=== PATIENT | female | born 1990 | race Caucasian/White ===

== ENCOUNTER → 2016-08-13 | Outpatient (CLI) | payer OTHER ==
--- NOTE | 2016-08-13 11:53 | US ---
EXAMINATION TYPE: US kidneys/renal and bladder DATE OF EXAM: 08/13/2016 11:37 AM COMPARISON: KUB 07/09/2015 CLINICAL HISTORY: N23 Bilateral Renal Colic. Back pain EXAM MEASUREMENTS: Right Kidney: 9.9 x 3.9 x 5.2 cm Left Kidney: 9.3 x 6.0 x 4.3 cm TECHNOLOGIST IMPRESSION: Right Kidney: multiple echogenic foci seen with largest measuring 0.6cm no significant posterior sha dowing is evident however. Left Kidney: wnl Bladder: wnl Bilateral Jets seen: yes IMPRESSION: 1. Possible right renal stones although no posterior shadowing is evident.
== END | disposition home or self-care (01) ==
LOC: RADUSWWP 11:00
PROVIDERS: ATTEND Urology
DX: N23 Unspecified renal colic (principal)
CPT/HCPCS: 76770

== ENCOUNTER 2022-04-28 14:54 | Emergency (ER) | payer OTHER ==
[2022-04-28 15:11] VITALS: TEMP 98.1
[2022-04-28] MEDS ORDERED: SODIUM CHLORIDE 0.9% 1,000 ML IV STA (17:01)
[2022-04-28] MEDS ORDERED: METOCLOPRAMIDE 5 MG/ML 2 ML VIAL IVP STA (17:01)
[2022-04-28] MEDS ORDERED: diphenhydrAMINE 50 MG/ML 1 ML VIAL IVP STA (17:01)
[2022-04-28] MEDS ORDERED: KETOROLAC 15 MG/ML 1 ML VIAL IVP STA (17:01)
[2022-04-28] MEDS ORDERED: DEXAMETHASONE SOD PHOSPHATE 10 MG/ML 1 ML VIAL IV STA (17:01)
--- NOTE | 2022-04-28 17:13 | ED ---
Headache HPI - General Chief Complaint: Headache Stated Complaint: Headache Time Seen by Provider: 04/28/22 16:45 Source: patient, RN notes reviewed Mode of arrival: ambulatory Limitations: no limitations - History of Present Illness Initial Comments: This is a 31-year-old female who presents to the emergency department for a headache. States that over the last 2 weeks, she has had increasing pressure and pain in her head. She has a "goose egg" on the back of her head, however she denies any known injuries. She has pain radiating from this bump into her eyes and the roof of her mouth, going down the right side of her neck. She does have a history of migraines, but states that this feels very different. 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 She has associated photophobia, sound sensitivity, and nausea. Also reports having sinus surgery a couple of weeks ago for a deviated septum. She has been taking one amoxicillin every couple of days when she has pain around the nose, as she does not have a prescription for this and has only been taking leftover pills. Denies any fevers, chills, sore throat, cough, dyspnea, chest pain, palpitations, abdominal pain, vomiting, or diarrhea. MD Complaint: headache, "migraine" Onset/Timin -: week(s) - Related Data Previous Rx's Medication Instructions Recorded Ondansetron [Zofran] 4 mg PO Q8HR PRN #8 tab 06/21/16 Ondansetron Odt [Zofran Odt] 4 mg PO Q8HR PRN #15 tab 04/28/22 SUMAtriptan succinate 100 mg PO DIRECTED PRN #15 04/28/22 tablet Allergies Allergy/AdvReac Type Severity Reaction Status Date / Time acyclovir Allergy Hallucinati Verified 04/28/22 15:12 ons Review of Systems ROS Statement: Those systems with pertinent positive or pertinent negative responses have been documented in the HPI. ROS Other: All systems not noted in ROS Statement are negative. Past Medical History Past Medical History: Atrial Fibrillation, Blood Disorder Additional Past Medical History / Comment(s): migraines; Anemia; hypokalemia History of Any Multi-Drug Resistant Organisms: MRSA Date of last positivie culture/infection: 2014 MDRO Source:: axilla Past Surgical History: Tonsillectomy Additional Past Surgical History / Comment(s): bladder surgery Past Psychological History: Anxiety, PTSD Smoking Status: Current every day smoker Past Alcohol Use History: None Reported, Rare Past Drug Use History: Marijuana General Exam Limitations: no limitations General appearance: alert, in distress Head exam: Present: atraumatic, normocephalic, normal inspection Eye exam: Present: normal appearance, PERRL, EOMI. Absent: scleral icterus, conjunctival injection, periorbital swelling ENT exam: Present: normal exam, mucous membranes moist Respiratory exam: Present: normal lung sounds bilaterally. Absent: respiratory distress, wheezes, rales, rhonchi, stridor Cardiovascular Exam: Present: regular rate, normal rhythm, normal heart sounds. Absent: systolic murmur, diastolic murmur, rubs, gallop, clicks Neurological exam: Present: alert, oriented X3, CN II-XII intact Psychiatric exam: Present: normal affect, normal mood Skin exam: Present: warm, dry, intact, normal color. Absent: rash Course Vital Signs 04/28/22 15:10 Temperature 98.1 F Pulse Rate 104 H Respiratory 20 Rate Blood Pressure 116/81 O2 Sat by Pulse 97 Oximetry Medical Decision Making - Medical Decision Making This is a 31-year-old female who presents to the emergency department for a headache. Lab work was nonactionable. Given that this was different and much worse than her typical migraine headaches, computed tomography scan of the brain was obtained. Based on my own interpretation, this revealed no signs of intracranial hemorrhage or mass effect. She was given a migraine cocktail consisting of Reglan, Toradol, Benadryl, and Decadron as well as IV fluids. Patient noted resolution of symptoms following medication administration. Prescription for sumatriptan and Zofran provided. Advised she try taking sumatriptan at the onset of a migraine and repeat the dose in 2 hours if symptoms do not improve. She is to avoid taking more than 2 doses in a 24-hour period. Zofran can be taken up to every 8 hours as needed for nausea and vomiti ng. Discussed that if migraines become more frequent, she may want to discuss starting a preventative medication with her primary care provider. Return precautions reviewed in depth, the patient is instructed to return to the emergency department with any new, worsening, or concerning symptoms. Patient verbalized understanding. This case was discussed in detail with the attending ED physician. Presentation, findings, and treatment plan discussed in detail as well. - Lab Data Result diagrams: 04/28/22 17:38 04/28/22 17:38 Lab Results 04/28/22 04/28/22 04/28/22 Range/Units 17:38 17:38 17:38 WBC 3.8 (3.8-10.6) k/uL RBC 3.93 (3.80-5.40) m/uL Hgb 13.7 (11.4-16.0) gm/dL Hct 39.8 (34.0-46.0) % MCV 101.2 H (80.0-100.0) fL MCH 35.0 (25.0-35.0) pg MCHC 34.5 (31.0-37.0) g/dL RDW 11.7 (11.5-15.5) % Plt Count 195 (150-450) k/uL MPV 7.9 Neutrophils % 72 % Lymphocytes % 10 % Monocytes % 14 % Eosinophils % 1 % Basophils % 1 % Neutrophils # 2.7 (1.3-7.7) k/uL Lymphocytes # 0.4 L (1.0-4.8) k/uL Monocytes # 0.5 (0-1.0) k/uL Eosinophils # 0.0 (0-0.7) k/uL Basophils # 0.0 (0-0.2) k/uL ESR 3 (0-20) mm/hr Sodium (137-145) mmol/L Potassium (3.5-5.1) mmol/L Chloride (98-107) mmol/L Carbon Dioxide (22-30) mmol/L Anion Gap mmol/L BUN (7-17) mg/dL Creatinine (0.52-1.04) mg/dL Est GFR (CKD-EPI)AfAm (>60 ml/min/1.73 sqM) Est GFR (CKD-EPI)NonAf (>60 ml/min/1.73 sqM) Glucose (74-99) mg/dL Calcium (8.4-10.2) mg/dL Magnesium (1.6-2.3) mg/dL Total Bilirubin (0.2-1.3) mg/dL AST (14-36) U/L ALT (4-34) U/L Alkaline Phosphatase (38-126) U/L C-Reactive Protein (<1.0) mg/dL Total Protein (6.3-8.2) g/dL Albumin (3.5-5.0) g/dL TSH (0.465-4.680) mIU/L Free T4 (0.78-2.19) ng/dL Urine Color Yellow Urine Appearance Turbid H (Clear) Urine pH 6.0 (5.0-8.0) Ur Specific [place] 1.024 (1.001-1.035) Urine Protein 2+ H (Negative) Urine Glucose (UA) Negative (Negative) Urine Ketones 2+ H (Negative) Urine Blood Small H (Negative) Urine Nitrite Negative (Negative) Urine Bilirubin Negative (Negative) Urine Urobilinogen 2.0 (<2.0) mg/dL Ur Leukocyte Esterase Negative (Negative) Urine RBC 6 H (0-5) /hpf Urine WBC 2 (0-5) /hpf Ur Squamous Epith Cells 17 H (0-4) /hpf Amorphous Sediment Rare H (None) /hpf Urine Bacteria Rare H (None) /hpf Urine Mucus Many H (None) /hpf Urine HCG, Qual Not Detected (Not Detectd) 04/28/22 Range/Units 17:38 WBC (3.8-10.6) k/uL RBC (3.80-5.40) m/uL Hgb (11.4-16.0) gm/dL Hct (34.0-46.0) % MCV (80.0-100.0) fL MCH (25.0-35.0) pg MCHC (31.0-37.0) g/dL RDW (11.5-15.5) % Plt Count (150-450) k/uL MPV Neutrophils % % Lymphocytes % % Monocytes % % Eosinophils % % Basophils % % Neutrophils # (1.3-7.7) k/uL Lymphocytes # (1.0-4.8) k/uL Monocytes # (0-1.0) k/uL Eosinophils # (0-0.7) k/uL Basophils # (0-0.2) k/uL ESR (0-20) mm/hr Sodium 139 (137-145) mmol/L Potassium 3.8 (3.5-5.1) mmol/L Chloride 103 (98-107) mmol/L Carbon Dioxide 23 (22-30) mmol/L Anion Gap 13 mmol/L BUN 11 (7-17) mg/dL Creatinine 0.60 (0.52-1.04) mg/dL Est GFR (CKD-EPI)AfAm >90 (>60 ml/min/1.73 sqM) Est GFR (CKD-EPI)NonAf >90 (>60 ml/min/1.73 sqM) Glucose 96 (74-99) mg/dL Calcium 9.2 (8.4-10.2) mg/dL Magnesium 1.9 (1.6-2.3) mg/dL Total Bilirubin 0.4 (0.2-1.3) mg/dL AST 32 (14-36) U/L ALT 22 (4-34) U/L Alkaline Phosphatase 53 (38-126) U/L C-Reactive Protein <0.5 (<1.0) mg/dL Total Protein 7.5 (6.3-8.2) g/dL Albumin 5.0 (3.5-5.0) g/dL TSH 0.464 L (0.465-4.680) mIU/L Free T4 0.99 (0.78-2.19) ng/dL Urine Color Urine Appearance (Clear) Urine pH (5.0-8.0) Ur Specific [place] (1.001-1.035) Urine Protein (Negative) Urine Glucose (UA) (Negative) Urine Ketones (Negative) Urine Blood (Negative) Urine Nitrite (Negative) Urine Bilirubin (Negative) Urine Urobilinogen (<2.0) mg/dL Ur Leukocyte Esterase (Negative) Urine RBC (0-5) /hpf Urine WBC (0-5) /hpf Ur Squamous Epith Cells (0-4) /hpf Amorphous Sediment (None) /hpf Urine Bacteria (None) /hpf Urine Mucus (None) /hpf Urine HCG, Qual (Not Detectd) - Radiology Data Radiology results: report reviewed, image reviewed Disposition Clinical Impression: Migraine headache Disposition: HOME SELF-CARE Instructions (If sedation given, give patient instructions): Migraine Headache (ED) Additional Instructions: Return to the emergency department with any new, worsening, or concerning symptoms. Take the sumatriptan and at the onset of a migraine headache. You can repeat the dose in 2 hours if symptoms do not improve. Do not take more than 2 pills in a 24-hour period. Take the Zofran up to every 8 hours as needed for any nausea and vomiting. Follow up with your primary care provider in 1-2 days. Prescriptions: SUMAtriptan succinate 100 mg PO DIRECTED PRN #15 tablet PRN Reason: Migraine Headache Ondansetron Odt [Zofran Odt] 4 mg PO Q8HR PRN #15 tab PRN Reason: Nausea And Vomiting Is patient prescribed a controlled substance at d/c from ED?: No Referrals: Nonstaff,Physician [Primary Care Provider] - 1-2 days
[2022-04-28 17:54] LABS: Basophils % (A) 1 %; Eosinophils % (A) 1 %; HCT 39.8 % (34.0-46.0); HGB 13.7 gm/dL (11.4-16.0); Lymphocytes # (A) 0.4 k/uL (1.0-4.8); Lymphocytes % (A) 10 %; MCHC 34.5 g/dL (31.0-37.0); MCV 101.2 fL (80.0-100.0); Mean Platelet Volume 7.9; Monocytes # (A) 0.5 k/uL (0-1.0); Monocytes % (A) 14 %; Neutrophils # (A) 2.7 k/uL (1.3-7.7); Neutrophils % (A) 72 %; Platelet Count 195 k/uL (150-450); RBC 3.93 m/uL (3.80-5.40); RDW 11.7 % (11.5-15.5); WBC 3.8 k/uL (3.8-10.6)
[2022-04-28 18:06] LABS: Amorphous Sediment,Urine Rare /hpf; Appearance,Urine Turbid (Clear); Bacteria,Urine Rare /hpf; Bilirubin,Urine Negative (Negative); Blood,Urine Small (Negative); Color,Urine Yellow; Glucose,Urine (UA) Negative (Negative); Ketones,Urine 2+ (Negative); Leukocyte Esterase,Urine Negative (Negative); Mucus,Urine Many /hpf; Nitrite,Urine Negative (Negative); Protein,Urine 2+ (Negative); RBC,Urine 6 /hpf (0-5); Specific Gravity,Urine 1.024 (1.001-1.035); Squamous Epithelial Cell,Urine 17 /hpf (0-4); WBC,Urine 2 /hpf (0-5)
[2022-04-28 18:12] LABS: ALT 22 U/L (4-34); AST 32 U/L (14-36); African American GFR (CKD) >90 (>60 ml/min/1.73 sqM); Alkaline Phosphatase 53 U/L (38-126); Anion Gap 13 mmol/L; Blood Urea Nitrogen 11 mg/dL (7-17); Calcium 9.2 mg/dL (8.4-10.2); Carbon Dioxide 23 mmol/L (22-30); Chloride 103 mmol/L (98-107); Glucose 96 mg/dL (74-99); Magnesium 1.9 mg/dL (1.6-2.3); Non-African American GFR(CKD) >90 (>60 ml/min/1.73 sqM); Potassium 3.8 mmol/L (3.5-5.1); Sodium 139 mmol/L (137-145); Total Bilirubin 0.4 mg/dL (0.2-1.3); Total Protein 7.5 g/dL (6.3-8.2)
[2022-04-28 18:16] LABS: C Reactive Protein <0.5 mg/dL (<1.0)
[2022-04-28 18:37] LABS: Erythrocyte Sedimentation Rate 3 mm/hr (0-20)
--- NOTE | 2022-04-28 18:52 | CT ---
EXAMINATION TYPE: CT brain wo con CT DLP: 1088.4 mGycm, Automated exposure control for dose reduction was used. DATE OF EXAM: 04/28/2022 6:14 PM COMPARISON: None. CLINICAL INDICATION:Female, 31 years old with history of Headache, hx of migraines, different sx, vitor oswald TECHNIQUE: Brain: Axial CT images of the brain were obtained with coronal and sagittal reformats created and rev iewed. Contrast used: None. Oral contrast used: None. FINDINGS: Brain: Extra-axial spaces: No abnormal extra-axial fluid collections. Ventricular system: Within normal limits Cerebral parenchyma: No acute intraparenchymal hemorrhage or mass effect. The duggan-white junction is well differentiated. Cerebellum: Unremarkable. Mass effect: No evidence of midline shift. Intracranial vasculature: unremarkable Soft tissues: Normal. Calvarium/osseous structures: No depressed skull fracture. Paranasal sinuses and mastoid air cells: Mild scattered paranasal sinus disease. Visualized orbits: Orbital contents are intact. IMPRESSION: No acute intracranial process.
[2022-04-28 19:17] LABS: T4, Free (Free Thyroxine) 0.99 ng/dL (0.78-2.19)
[2022-04-28 19:33] VITALS: BP 100/52; PULSE 65; RESP 16
== END 2022-04-28 19:52 | disposition home or self-care (01) ==
LOC: EC 14:54
DX: G43.909 Migraine, unspecified, not intractable, without status migrainosus (principal); I48.91 Unspecified atrial fibrillation; F41.9 Anxiety disorder, unspecified; F17.200 Nicotine dependence, unspecified, uncomplicated; F12.90 Cannabis use, unspecified, uncomplicated; Z88.8 Allergy status to other drugs, medicaments and biological substances; Z79.899 Other long term (current) drug therapy
CPT/HCPCS: 36415; 84439; 80053; 85652; 84443; 83735; 85025; 86140; 81001; 81025; 70450; 99284; 96374; 96375 ×3; 96361 ×2; J1200; J1100; J2765; J1885

== ENCOUNTER 2022-06-08 09:52 | Day surgery (SDC) | payer OTHER ==
[2022-06-04 15:03] VITALS: BMI 18.3
[~2022-06-08 09:52] MED LIST: SODIUM CHLORIDE 0.9% 1,000 ML IV SCH
[2022-06-08 10:35] VITALS: RESP 16; TEMP 98.5
[2022-06-08] MEDS ORDERED: SODIUM CHLORIDE 0.9% 500 ML 500 ML IV ONE (10:36)
[2022-06-08] MEDS ORDERED: ATROPINE SULFATE 0.1 MG/ML 10ML SYRINGE IV ONE (11:50)
[2022-06-08 13:40] VITALS: BP 129/78; PULSE 93
--- NOTE | 2022-06-08 14:08 | P.EPPROC ---
- EP Procedure Note Electrophysiology Procedure Note: Diagnosis Recurrent syncope Twelve-lead EKG shows sinus mechanism normal MT narrow QRS and incomplete right bundle branch block Normal ST segments normal QT interval no delta waves no epsilon waves Tilt table test per protocol Baseline blood pressure 124/63 mmHg Baseline heart rate 70 beats a minute Patient was tilted upright at an angle of 70 per protocol No significant change in heart rate or blood pressure with ClearSite noninvasive blood pressure monitoring Atropine infusion The patient is laid supine at the end of the procedure IV atropine was administered, 1 mg Baseline heart rate 70 beats a minute Peak heart rate 101 beats a minute 10 minutes after injection of atropine
== END 2022-06-08 12:33 | disposition home or self-care (01) ==
LOC: CATHEP 09:52
PROVIDERS: ATTEND Internal Medicine Clinical Cardiac Electrophysiology
DX: R55 Syncope and collapse (principal); I47.1 Supraventricular tachycardia; I49.3 Ventricular premature depolarization
CPT/HCPCS: 93660; 81025; J0461

== ENCOUNTER 2022-06-09 13:28 | Emergency (ER) | payer OTHER ==
[2022-06-09 13:38] VITALS: BP 112/67; PULSE 85; RESP 26; TEMP 98.7
--- NOTE | 2022-06-09 14:29 | XR ---
EXAMINATION TYPE: XR chest 2V DATE OF EXAM: 06/09/2022 COMPARISON: 09/08/2015 HISTORY: Chest pain TECHNIQUE: Frontal and lateral views of the chest are obtained. FINDINGS: There is no focal air space opacity. No evidence for pneumothorax. No pleural effusion. The cardiac silhouette size is within normal limits. The osseous structures are grossly intact. IMPRESSION: 1. No acute cardiopulmonary process.
[2022-06-09 15:11] LABS: Basophils % (A) 0 %; Eosinophils # (A) 0.1 k/uL (0-0.7); Eosinophils % (A) 1 %; HCT 36.1 % (34.0-46.0); HGB 12.6 gm/dL (11.4-16.0); Lymphocytes # (A) 0.4 k/uL (1.0-4.8); Lymphocytes % (A) 7 %; MCH 34.6 pg (25.0-35.0); MCV 98.9 fL (80.0-100.0); Monocytes # (A) 0.6 k/uL (0-1.0); Monocytes % (A) 12 %; Neutrophils % (A) 78 %; Platelet Count 223 k/uL (150-450); RBC 3.65 m/uL (3.80-5.40); RDW 11.8 % (11.5-15.5); WBC 5.1 k/uL (3.8-10.6)
[2022-06-09 15:32] LABS: ALT 18 U/L (4-34); AST 23 U/L (14-36); African American GFR (CKD) >90 (>60 ml/min/1.73 sqM); Albumin 4.5 g/dL (3.5-5.0); Alkaline Phosphatase 52 U/L (38-126); Anion Gap 9 mmol/L; Blood Urea Nitrogen 12 mg/dL (7-17); Calcium 9.1 mg/dL (8.4-10.2); Carbon Dioxide 20 mmol/L (22-30); Chloride 108 mmol/L (98-107); Glucose 95 mg/dL (74-99); Non-African American GFR(CKD) >90 (>60 ml/min/1.73 sqM); Potassium 3.5 mmol/L (3.5-5.1); Sodium 137 mmol/L (137-145); Total Bilirubin 0.7 mg/dL (0.2-1.3)
== END 2022-06-09 16:07 | disposition left against medical advice (07) ==
LOC: EC 13:28
DX: Z53.21 Procedure and treatment not carried out due to patient leaving prior to being seen by health care provider (principal)
CPT/HCPCS: 36415; 71046; 80053; 84484; 85025; 96372; 99284; 99499

== ENCOUNTER → 2023-06-17 | Outpatient (CLI) | payer OTHER ==
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
[2023-06-17 09:14] VITALS: RESP 16
== END ==
LOC: WWCWWP 07:18
PROVIDERS: ATTEND Surgery
DX: Z12.31 Encounter for screening mammogram for malignant neoplasm of breast (principal); R92.1 Mammographic calcification found on diagnostic imaging of breast; N64.52 Nipple discharge; N63.20 Unspecified lump in the left breast, unspecified quadrant; I48.91 Unspecified atrial fibrillation; R55 Syncope and collapse; I42.9 Cardiomyopathy, unspecified; F17.200 Nicotine dependence, unspecified, uncomplicated; Z80.3 Family history of malignant neoplasm of breast; Z88.0 Allergy status to penicillin; Z86.69 Personal history of other diseases of the nervous system and sense organs; Z91.048 Other nonmedicinal substance allergy status

== ENCOUNTER → 2023-06-17 | Day surgery (SDC) | payer OTHER ==
[2023-06-17 07:51] VITALS: BP 107/72; PULSE 78; RESP 16; TEMP 97.9
== END ==
LOC: RADMAMWWP 07:19
PROVIDERS: ATTEND Surgery
DX: R92.8 Other abnormal and inconclusive findings on diagnostic imaging of breast (principal); Z53.9 Procedure and treatment not carried out, unspecified reason

== ENCOUNTER 2023-07-14 15:06 | Emergency (ER) | payer OTHER ==
[2023-07-14 15:24] VITALS: BP 127/88; PULSE 80; RESP 16; TEMP 98
[2023-07-14] MEDS ORDERED: diphenhydrAMINE 50 MG/ML 1 ML VIAL IVP STA (18:36)
[2023-07-14] MEDS ORDERED: METOCLOPRAMIDE 5 MG/ML 2 ML VIAL IVP STA (18:37)
[2023-07-14 19:04] LABS: Appearance,Urine Cloudy (Clear); Bilirubin,Urine Negative (Negative); Blood,Urine Negative (Negative); Color,Urine Yellow; Glucose,Urine (UA) Negative (Negative); Ketones,Urine Negative (Negative); Leukocyte Esterase,Urine Negative (Negative); Mucus,Urine Many /hpf; Nitrite,Urine Negative (Negative); PH, Urine 6.5 (5.0-8.0); Protein,Urine Trace (Negative); RBC,Urine 2 /hpf (0-5); Squamous Epithelial Cell,Urine <1 /hpf (0-4); WBC,Urine <1 /hpf (0-5)
[2023-07-14 19:13] LABS: Amphetamine Screen,Urine Not Detected (NotDetected); Barbiturate Screen,Urine Not Detected (NotDetected); Benzodiazepines Screen,Urine Not Detected (NotDetected); Cocaine Screen,Urine Not Detected (NotDetected); Methadone Screen, Urine Not Detected (NotDetected); Opiate Screen,Urine Not Detected (NotDetected); Oxycodone Screen, Urine Not Detected (NotDetected); Phencyclidine Screen,Urine Not Detected (NotDetected); Tricyclic Antidepressant,Urine Not Detected (NotDetected); Urn Cannabinoid Scrn Detected (NotDetected)
[2023-07-14 19:16] LABS: Basophils % (A) 0 %; Eosinophils # (A) 0.4 k/uL (0-0.7); Eosinophils % (A) 3 %; HCT 45.7 % (34.0-46.0); HGB 14.9 gm/dL (11.4-16.0); Lymphocytes # (A) 4.1 k/uL (1.0-4.8); Lymphocytes % (A) 32 %; MCH 33.7 pg (25.0-35.0); MCHC 32.6 g/dL (31.0-37.0); MCV 103.4 fL (80.0-100.0); Macrocytosis Slight; Mean Platelet Volume 7.8; Monocytes # (A) 0.7 k/uL (0-1.0); Monocytes % (A) 5 %; Neutrophils # (A) 7.3 k/uL (1.3-7.7); Neutrophils % (A) 57 %; Platelet Count 399 k/uL (150-450); RBC 4.42 m/uL (3.80-5.40); RDW 12.3 % (11.5-15.5); WBC 12.9 k/uL (3.8-10.6)
--- NOTE | 2023-07-14 19:29 | CT ---
EXAMINATION TYPE: CT brain wo con CT DLP: 1093.4 mGycm, Automated exposure control for dose reduction was used. DATE OF EXAM: 07/14/2023 7:18 PM COMPARISON: 04/28/2022. CLINICAL INDICATION:Female, 32 years old with history of pain, c/o headache, pt states she has a sinu s infection. TECHNIQUE: Brain: Axial CT images of the brain were obtained with coronal and sagittal reformats created and rev iewed. Contrast used: None. Oral contrast used: None. FINDINGS: Brain: Extra-axial spaces: No abnormal extra-axial fluid collections. Ventricular system: Within normal limits Cerebral parenchyma: No acute intraparenchymal hemorrhage or mass effect. The duggan-white junction is well differentiated. Cerebellum: Unremarkable. Mass effect: No evidence of midline shift. Intracranial vasculature: unremarkable Soft tissues: Normal. Calvarium/osseous structures: No depressed skull fracture. Paranasal sinuses and mastoid air cells: Mild scattered paranasal sinus disease. Visualized orbits: Orbital contents are intact. IMPRESSION: 1. No acute intracranial process. 2. Mild paranasal sinus mucosal thickening.
--- NOTE | 2023-07-15 00:37 | ED ---
General Adult HPI - General Chief complaint: ENT Stated complaint: infection, Time Seen by Provider: 07/14/23 17:55 Source: patient, RN notes reviewed Mode of arrival: ambulatory Limitations: no limitations - History of Present Illness Initial comments: 32-year-old female presents emergency department for evaluation of headache with history of sinusitis. Patient states that she follows with Dr. Dupree in [place] for ENT treatment. She states that she has been on 3 courses of antibiotics the most recent being clindamycin she reports that she is still currently taking. She states that she had headache today. Patient reports of fevers at home and she is carrying a thermometer with her currently. Last documented temperatures on her thermometer were 98.3, 98.1. She reports that the pain is mostly on the right side of her head it is a shooting pain. She reports pain in the right ear. She also admits to facial pressure. Denies romain sea, vomiting. - Related Data Home Medications Medication Instructions Recorded Confirmed Ibuprofen 600 mg PO BID 06/17/23 06/17/23 Allergies Allergy/AdvReac Type Severity Reaction Status Date / Time adhesive Allergy Rash/Hives Verified 07/14/23 15:14 amoxicillin [From Amoxil] Allergy Rash/Hives Verified 07/14/23 15:14 Review of Systems ROS Statement: Those systems with pertinent positive or pertinent negative responses have been documented in the HPI. ROS Other: All systems not noted in ROS Statement are negative. Past Medical History Past Medical History: Atrial Fibrillation, Blood Disorder, Syncope Additional Past Medical History / Comment(s): migraines; ANEMIA,-SEE [facility] History of Any Multi-Drug Resistant Organisms: MRSA Date of last positivie culture/infection: 2014 MDRO Source:: axilla Past Surgical History: Bladder Surgery, Tonsillectomy Additional Past Surgical History / Comment(s): bladder surgery. SINUS SX Past Anesthesia/Blood Transfusion Reactions: Motion Sickness Past Psychological History: PTSD Past Drug Use History: Marijuana - Past Family History Mother Family Medical History: Cancer General Exam Limitations: no limitations General appearance: alert, in no apparent distress Course Vital Signs 07/14/23 07/14/23 15:11 16:23 Temperature 98.0 F Pulse Rate 80 80 Respiratory 16 16 Rate Blood Pressure 127/88 O2 Sat by Pulse 97 98 Oximetry Medical Decision Making - Medical Decision Making Was pt. sent in by a medical professional or institution (GLORIA Gonzales, [employer], urgent care, hospital, or custodial...) When possible be specific @ -No Did you speak to anyone other than the patient for history (EMS, parent, family, police, friend...)? What history was obtained from this source @ -No Did you review nursing and triage notes (agree or disagree)? Why? @ -I reviewed and agree with nursing and triage notes Were old charts reviewed (outside hosp., previous admission, EMS record, old EKG, old radiological studies, urgent care reports/EKG's, custodial records)? Report findings @ -No old charts were reviewed Differential Diagnosis (chest pain, altered mental status, abdominal pain women, abdominal pain men, vaginal bleeding, weakness, fever, dyspnea, syncope, headache, dizziness, GI bleed, back pain, seizure, CVA, palpatations, mental health, musculoskeletal)? @ -Sinusitis, otitis media, encephalitis, this list is not all-inclusive EKG interpreted by me (3pts min.). @ -none X-rays interpreted by me (1pt min.). @ -None done CT interpreted by me (1pt min.). @ -CT brain shows no acute intracranial process, mild mucosal thickening U/S interpreted by me (1pt. min.). @ -None done What testing was considered but not performed or refused? (CT, X-rays, U/S, labs)? Why? @ -None What meds were considered but not given or refused? Why? @ -None Did you discuss the management of the patient with other professionals (professionals i.e. GLORIA Gonzales, [employer]IVER, lab, RT, psych nurse, social media project manager, peoplesoft functional analyst, teacher, department of natural resources officer, welfare case worker)? Give summary @ -No Was smoking cessation discussed for >3mins.? @ -No Was critical care preformed (if so, how long)? @ -No Were there social determinants of health that impacted care today? How? (Homelessness, low income, unemployed, alcoholism, drug addiction, transportation, low edu. Level, literacy, decrease access to med. care, mcc, rehab)? @ -No Was there de-escalation of care discussed even if they declined (Discuss DNR or withdrawal of care, Hospice)? DNR status @ -No What co-morbidities impacted this encounter? (DM, HTN, Smoking, COPD, CAD, Cancer, CVA, ARF, Chemo, Hep., AIDS, mental health diagnosis, sleep apnea, morbid obesity)? @ -None Was patient admitted / discharged? Hospital course, mention meds given and route, prescriptions, significant lab abnormalities, going to OR and other pertinent info. @ -Patient presented to the emergency department for evaluation of headache, sinusitis. Patient was tested for Covid, influenza, RSV in the waiting room which was negative. Patient was brought back to 26 and was evaluated by myself. Because of patient's symptomatology a computed tomography scan of the brain was obtained which shows no acute intracranial process. Laboratory studies obtained. CBC shows a CBC 12.9, hemoglobin 14.9; lactic acid 1.0; UA shows cloudy urine, trace protein; urine drug screen positive for marijuana. While nurse was in another room, the patient eloped from the emergency department with IV intact. Therefore patient left AGAINST MEDICAL ADVICE. The patient was contacted but did not answer. [facility] Department was made aware of the situation. Undiagnosed new problem with uncertain prognosis? @ -No Drug Therapy requiring intensive monitoring for toxicity (Heparin, Nitro, Insulin, Cardizem)? @ -No Were any procedures done? @ -No Diagnosis/symptom? @ -Left AGAINST MEDICAL ADVICE, headache Acute, or Chronic, or Acute on Chronic? @ -acute Uncomplicated (without systemic symptoms) or Complicated (systemic symptoms)? @ -uncomplicated Side effects of treatment? @ -No Exacerbation, Progression, or Severe Exacerbation? @ -No Poses a threat to life or bodily function? How? (Chest pain, USA, NH, pneumonia, PE, COPD, DKA, ARF, appy, cholecystitis, CVA, Diverticulitis, Homicidal, Suicidal, threat to staff... and all critical care pts) @ -No - Lab Data Result diagrams: 07/14/23 18:41 Lab Results 07/14/23 07/14/23 07/14/23 Range/Units 15:17 18:41 18:41 WBC 12.9 H (3.8-10.6) k/uL RBC 4.42 (3.80-5.40) m/uL Hgb 14.9 (11.4-16.0) gm/dL Hct 45.7 (34.0-46.0) % MCV 103.4 H (80.0-100.0) fL MCH 33.7 (25.0-35.0) pg MCHC 32.6 (31.0-37.0) g/dL RDW 12.3 (11.5-15.5) % Plt Count 399 (150-450) k/uL MPV 7.8 Neutrophils % 57 % Lymphocytes % 32 % Monocytes % 5 % Eosinophils % 3 % Basophils % 0 % Neutrophils # 7.3 (1.3-7.7) k/uL Lymphocytes # 4.1 (1.0-4.8) k/uL Monocytes # 0.7 (0-1.0) k/uL Eosinophils # 0.4 (0-0.7) k/uL Basophils # 0.0 (0-0.2) k/uL Macrocytosis Slight Plasma Lactic Acid Jorge Luis 1.0 (0.7-2.0) mmol/L Urine Color Urine Appearance (Clear) Urine pH (5.0-8.0) Ur Specific [place] (1.001-1.035) Urine Protein (Negative) Urine Glucose (UA) (Negative) Urine Ketones (Negative) Urine Blood (Negative) Urine Nitrite (Negative) Urine Bilirubin (Negative) Urine Urobilinogen (<2.0) mg/dL Ur Leukocyte Esterase (Negative) Urine RBC (0-5) /hpf Urine WBC (0-5) /hpf Ur Squamous Epith Cells (0-4) /hpf Urine Mucus (None) /hpf Urine HCG, Qual (Not Detectd) Urine Opiates Screen (NotDetected) Ur Oxycodone Screen (NotDetected) Urine Methadone Screen (NotDetected) Ur Barbiturates Screen (NotDetected) U Tricyclic Antidepress (NotDetected) Ur Phencyclidine Scrn (NotDetected) Ur Amphetamines Screen (NotDetected) U Methamphetamines Scrn (NotDetected) U Benzodiazepines Scrn (NotDetected) Urine Cocaine Screen (NotDetected) U Marijuana (THC) Screen (NotDetected) Influenza Type A (PCR) Not Detected (Not Detectd) Influenza Type B (PCR) Not Detected (Not Detectd) RSV (PCR) Not Detected (Not Detectd) SARS-CoV-2 (PCR) Not Detected (Not Detectd) 07/14/23 07/14/23 Range/Units 18:41 18:41 WBC (3.8-10.6) k/uL RBC (3.80-5.40) m/uL Hgb (11.4-16.0) gm/dL Hct (34.0-46.0) % MCV (80.0-100.0) fL MCH (25.0-35.0) pg MCHC (31.0-37.0) g/dL RDW (11.5-15.5) % Plt Count (150-450) k/uL MPV Neutrophils % % Lymphocytes % % Monocytes % % Eosinophils % % Basophils % % Neutrophils # (1.3-7.7) k/uL Lymphocytes # (1.0-4.8) k/uL Monocytes # (0-1.0) k/uL Eosinophils # (0-0.7) k/uL Basophils # (0-0.2) k/uL Macrocytosis Plasma Lactic Acid Jorge Luis (0.7-2.0) mmol/L Urine Color Yellow Urine Appearance Cloudy H (Clear) Urine pH 6.5 (5.0-8.0) Ur Specific [place] 1.020 (1.001-1.035) Urine Protein Trace H (Negative) Urine Glucose (UA) Negative (Negative) Urine Ketones Negative (Negative) Urine Blood Negative (Negative) Urine Nitrite Negative (Negative) Urine Bilirubin Negative (Negative) Urine Urobilinogen 2.0 (<2.0) mg/dL Ur Leukocyte Esterase Negative (Negative) Urine RBC 2 (0-5) /hpf Urine WBC <1 (0-5) /hpf Ur Squamous Epith Cells <1 (0-4) /hpf Urine Mucus Many H (None) /hpf Urine HCG, Qual Not Detected (Not Detectd) Urine Opiates Screen Not Detected (NotDetected) Ur Oxycodone Screen Not Detected (NotDetected) Urine Methadone Screen Not Detected (NotDetected) Ur Barbiturates Screen Not Detected (NotDetected) U Tricyclic Antidepress Not Detected (NotDetected) Ur Phencyclidine Scrn Not Detected (NotDetected) Ur Amphetamines Screen Not Detected (NotDetected) U Methamphetamines Scrn Not Detected (NotDetected) U Benzodiazepines Scrn Not Detected (NotDetected) Urine Cocaine Screen Not Detected (NotDetected) U Marijuana (THC) Screen Detected H (NotDetected) Influenza Type A (PCR) (Not Detectd) Influenza Type B (PCR) (Not Detectd) RSV (PCR) (Not Detectd) SARS-CoV-2 (PCR) (Not Detectd) Disposition Clinical Impression: Left against medical advice Disposition: LEFT AGAINST MEDICAL ADVICE Is patient prescribed a controlled substance at d/c from ED?: No Referrals: Shaq Majano [Primary Care Provider] - 1-2 days
== END 2023-07-14 20:19 | disposition left against medical advice (07) ==
LOC: EC 15:06
DX: R51.9 Headache, unspecified (principal); I48.91 Unspecified atrial fibrillation; F12.90 Cannabis use, unspecified, uncomplicated; Z20.822 Contact with and (suspected) exposure to COVID-19; Z53.29 Procedure and treatment not carried out because of patient's decision for other reasons; Z88.0 Allergy status to penicillin; Z91.048 Other nonmedicinal substance allergy status
CPT/HCPCS: 36415; 83605; 85025; 81001; 81025; 80306; 87636; 70450; 99284; 96374; 96375; J1200; J2765

== ENCOUNTER → 2023-08-02 | Outpatient (CLI) | payer OTHER ==
--- NOTE | 2023-08-02 10:18 | USB ---
Reason for Exam: Clinical finding. Patient History: Menarche at age 7. First Full-Term at age 19. Prior Study Comparison: 05/08/2014 Bilateral Diagnostic Mammogram, [facility]. 07/17/2015 Bilateral Diagnostic Ultrasound, [facility]. Findings: The whole breast of the right breast, the axilla of the right breast and the retroareolar of the right breast were scanned. Technique utilized:US breast complete RT Image; Ultrasound imaging of: All 4 quadrants, the retroareolar region and axilla. * Anechoic cyst at 9:00 4 cm from the nipple measuring 5 x 3 x 7 mm . * Hypoechoic lesion at 9:00 4 cm from the nipple measuring 4 x 3 x 4 mm. This is felt to represent a complicated cyst. Six-month follow-up for this lesion to ensure stability as there are no ultrasound priors of this lesion. Overall Assessment: Probably benign, BI-RAD 3 Management: Diagnostic Breast Ultrasound of the right breast in 6 months. A clinical breast exam by your physician is recommended on an annual basis and results should be correlated with mammographic findings. This exam should not preclude additional follow-up of suspicious palpable abnormalities. Results were given to the patient verbally at the time of exam. Electronically signed and approved by: Del Amaro DO
== END | disposition home or self-care (01) ==
LOC: RADUSWWP 09:35
PROVIDERS: ATTEND Surgery
DX: N64.4 Mastodynia (principal)

== ENCOUNTER → 2023-08-05 | Outpatient (CLI) | payer OTHER ==
--- NOTE | 2023-08-05 13:05 | P.PN ---
Subjective Progress Note Date: 08/05/23 Principal diagnosis: abnormal right breast mammogram, abnormal right breast ultrasound Aspen is a 32 year old female who had a bilateral mammogram performed on . This revealed group of punctate calcifications in the right breast. This is in the upper outer posterior breast and stereotactic core biopsy was recommended. No lesions of concern were identified in the left breast. A left breast ultrasound was performed on the same date and this revealed a 0.7 x 0.7 cm oval mass. Findings were compatible with a complex cyst in short-term follow-up was recommended. An additional cyst at the 1 o'clock position was identified. She has had breast lumps since 2011. She also complains of stabbing pain in both breast since 2011. This led to her work-up. She did not have a right breast ultrasound. She has not had any surgery on her breast. She is complaining of nipple discharge bilateral milky during her period. Her last period was approximately 1 week ago. She is not complaining of any recent trauma or infection in her breast. She had a right breast ultrasound done on 08-02-23 which was BIRAD 3; repeat in 6 months her stero biopsy was cancelled on 06-17-23 secondary to the fact the patient was taking motrin ULtrasound results discussed with the patient. Plan: schedule the stero biopsy of the right breast CC: Dr. Bach
[2023-08-05 13:35] VITALS: BP 128/86; PULSE 99; RESP 15; TEMP 99
== END ==
LOC: WWCWWP 12:10
PROVIDERS: ATTEND Surgery
DX: R92.1 Mammographic calcification found on diagnostic imaging of breast (principal); N63.20 Unspecified lump in the left breast, unspecified quadrant; N64.52 Nipple discharge; N60.01 Solitary cyst of right breast; F12.90 Cannabis use, unspecified, uncomplicated; F17.200 Nicotine dependence, unspecified, uncomplicated; Z91.048 Other nonmedicinal substance allergy status; Z88.0 Allergy status to penicillin

== ENCOUNTER → 2023-08-26 | Day surgery (SDC) | payer OTHER ==
--- NOTE | 2023-08-26 08:28 | P.PN ---
Progress Note - Text Progress Note Date: 08/26/23 Plan repeat bilateral mammogram radiographic workup today. After review of the radiographs with Dr. Wadsworth's recommendation was for repeat bilateral mammogram and ultrasound in 6 months. I have discussed this with the patient. The patient would like us to review this with Dr. Pettit as well we will do this the next time Dr. Pettit is in the department and final recommendation will be given to the patient. For today's appointment however we are going to cancel the stereotactic core biopsy. The patient does have fibrocystic breast like pain. We have discussed lifestyle modifications. These would include stopping nicotine, decrease caffeine, she understands and will consider this.
--- NOTE | 2023-08-26 10:41 | MM ---
Procedure Description: Outside images were made available for review. We Management: Diagnostic Mammogram of both breasts in 6 months. Also bilateral breast ultrasounds in 6 months as followup from previous recommendation. Electronically signed and approved by: Shonda Wadsworth M.D. Radiologist
== END ==
LOC: RADMAMWWP 07:48
PROVIDERS: ATTEND Surgery
DX: R92.8 Other abnormal and inconclusive findings on diagnostic imaging of breast (principal); Z53.8 Procedure and treatment not carried out for other reasons

== ENCOUNTER → 2023-10-22 | Outpatient (CLI) | payer OTHER ==
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
[2023-10-22 11:59] VITALS: BP 122/78; PULSE 77; RESP 16; TEMP 97.8
== END ==
LOC: WWCWWP 11:03
PROVIDERS: ATTEND Surgery
DX: R92.8 Other abnormal and inconclusive findings on diagnostic imaging of breast (principal); R92.1 Mammographic calcification found on diagnostic imaging of breast; N63.20 Unspecified lump in the left breast, unspecified quadrant; N64.52 Nipple discharge; R92.341 Mammographic extreme density, right breast; F17.210 Nicotine dependence, cigarettes, uncomplicated; Z80.3 Family history of malignant neoplasm of breast; Z88.0 Allergy status to penicillin; Z91.048 Other nonmedicinal substance allergy status

== ENCOUNTER 2023-11-17 12:29 | Emergency (ER) | payer OTHER ==
--- NOTE | 2023-11-17 12:52 | ED ---
General Adult HPI - General Chief complaint: Arrhythmia/Palpitations Stated complaint: AMS,Headache Time Seen by Provider: 11/17/23 12:40 Source: patient, RN notes reviewed, old records reviewed Mode of arrival: ambulatory Limitations: no limitations - History of Present Illness Initial comments: This is a 33-year-old female with a past medical history significant for bigeminy QT prolongation as well as SVT. Patient states since yesterday she has had some chest tightness and some palpitations show she tried to get to see cardiology today but they told her just to come to the emergency department. Patient denies any heaviness or pressure. Patient denies any chest pain. Patient denies any difficulty breathing shortness of breath. Patient is any recent fever chills or cough. Patient states she has a very slight headache. Patient denies any abdominal pain patient [place] any nausea or vomiting. - Related Data Home Medications Medication Instructions Recorded Confirmed Omeprazole 20 mg PO DAILY 10/22/23 10/22/23 Allergies Allergy/AdvReac Type Severity Reaction Status Date / Time adhesive Allergy Rash/Hives Verified 11/17/23 12:35 amoxicillin [From Amoxil] Allergy Rash/Hives Verified 11/17/23 12:35 Review of Systems ROS Statement: Those systems with pertinent positive or pertinent negative responses have been documented in the HPI. ROS Other: All systems not noted in ROS Statement are negative. Past Medical History Past Medical History: Atrial Fibrillation, Blood Disorder, Syncope Additional Past Medical History / Comment(s): migraines; ANEMIA,-SEE [facility] History of Any Multi-Drug Resistant Organisms: MRSA Date of last positivie culture/infection: 2014 MDRO Source:: axilla Past Surgical History: Appendectomy, Bladder Surgery, Tonsillectomy Additional Past Surgical History / Comment(s): bladder surgery, larnyx surgery. SINUS SX Past Anesthesia/Blood Transfusion Reactions: Motion Sickness Past Psychological History: PTSD Smoking Status: Current every day smoker Past Alcohol Use History: None Reported Past Drug Use History: Marijuana - Past Family History Mother Family Medical History: Cancer General Exam - General Exam Comments Initial Comments: GENERAL: Patient is well-developed and well-nourished. Patient is nontoxic and well- hydrated and is in no acute distress. ENT: Neck is soft and supple. No significant lymphadenopathy is noted. Oropharynx is clear. Moist mucous membranes. Neck has full range of motion without eliciting any pain. EYES: The sclera were anicteric and conjunctiva were pink and moist. Extraocular movements were intact and pupils were equal round and reactive to light. Eyelids were unremarkable. PULMONARY: Unlabored respirations. Good breath sounds bilaterally. No audible rales rho nchi or wheezing was noted. CARDIOVASCULAR: There is a regular rate and rhythm without any murmurs gallops or rubs. ABDOMEN: Soft and nontender with normal bowel sounds. No palpable organomegaly was noted. There is no palpable pulsatile mass. SKIN: Skin is clear with no lesions or rashes and otherwise unremarkable. NEUROLOGIC: Patient is alert and oriented x3. Cranial nerves II through XII are grossly intact. Motor and sensory are also intact. Normal speech, volume and content. Symmetrical smile. MUSCULOSKELETAL: Normal extremities with adequate strength and full range of motion. No lower extremity swelling or edema. No calf tenderness. LYMPHATICS: No significant lymphadenopathy is noted PSYCHIATRIC: Normal psychiatric evaluation. Limitations: no limitations Course Vital Signs 11/17/23 11/17/23 12:31 13:16 Temperature 98.2 F Pulse Rate 97 69 Respiratory 18 20 Rate Blood Pressure 117/85 125/92 O2 Sat by Pulse 98 99 Oximetry Medical Decision Making - Medical Decision Making EKG is interpreted by myself but EKG shows sinus rhythm at 70 bpm parables 131 QRS is 86 QT interval [address] segment elevation is noted Was pt. sent in by a medical professional or institution (, PA, CLINIC ADMINISTRATOR, urgent care, hospital, or senior living...) When possible be specific @ -No Did you speak to anyone other than the patient for history (EMS, parent, family, police, friend...)? What history was obtained from this source @ -No Did you review nursing and triage notes (agree or disagree)? Why? @ -I reviewed and agree with nursing and triage notes Were old charts reviewed (outside hosp., previous admission, EMS record, old EKG, old radiological studies, urgent care reports/EKG's, senior living records)? Report findings @ -I reviewed prior EKGs and compared to this EKG. I see no changes. Differential Diagnosis (chest pain, altered mental status, abdominal pain women, abdominal pain men, vaginal bleeding, weakness, fever, dyspnea, syncope, headache, dizziness, GI bleed, back pain, seizure, CVA, palpatations, mental h ealth, musculoskeletal)? @ -Differential Palpitations Ventricular arrhythmias, atrial arrhythmias, myocardial infarction, anemia, thyrotoxicosis, electrolyte imbalance, hypokalemia, pulmonary embolism, pulmonary disease, drugs, alcohol, anxiety, stress.... This is not meant to be an all-inclusive list. EKG interpreted by me (3pts min.). @ -As above X-rays interpreted by me (1pt min.). @ -Chest x-ray shows no acute abnormality CT interpreted by me (1pt min.). @ -None done U/S interpreted by me (1pt. min.). @ -None done What testing was considered but not performed or refused? (CT, X-rays, U/S, labs)? Why? @ -None What meds were considered but not given or refused? Why? @ -None Did you discuss the management of the patient with other professionals (professionals i.e. , PA, CLINIC ADMINISTRATOR, lab, RT, psych nurse, social sciences lecturer, admitting office escort, teacher, community service officer, shoe caser)? Give summary @ -No Was smoking cessation discussed for >3mins.? @ -No Was critical care preformed (if so, how long)? @ -No Were there social determinants of health that impacted care today? How? (Homelessness, low income, unemployed, alcoholism, drug addiction, transportation, low edu. Level, literacy, decrease access to med. care, [facility], rehab)? @ -No Was there de-escalation of care discussed even if they declined (Discuss DNR or withdrawal of care, Hospice)? DNR status @ -No What co-morbidities impacted this encounter? (DM, HTN, Smoking, COPD, CAD, Cancer, CVA, ARF, Chemo, Hep., AIDS, mental health diagnosis, sleep apnea, morbid obesity)? @ -None Was patient admitted / discharged? Hospital course, mention meds given and route, prescriptions, significant lab abnormalities, going to OR and other pertinent info. @ -Patient was asymptomatic throughout her ED stay. Lab work came back within normal range she was no longer having any symptoms and she will follow-up with cardiology Undiagnosed new problem with uncertain prognosis? @ -No Drug Therapy requiring intensive monitoring for toxicity (Heparin, Nitro, Ins ulin, Cardizem)? @ -No Were any procedures done? @ -No Diagnosis/symptom? @ -Palpitations Acute, or Chronic, or Acute on Chronic? @ -Acute Uncomplicated (without systemic symptoms) or Complicated (systemic symptoms)? @ -Complicated Side effects of treatment? @ -No Exacerbation, Progression, or Severe Exacerbation? @ -No Poses a threat to life or bodily function? How? (Chest pain, [place], [place], pneumonia, PE, COPD, DKA, ARF, appy, cholecystitis, CVA, Diverticulitis, Homicidal, Suicidal, threat to staff... and all critical care pts) @ -No - Lab Data Result diagrams: 11/17/23 13:06 11/17/23 13:06 Lab Results 11/17/23 11/17/23 11/17/23 Range/Units 13:06 13:06 13:06 WBC 6.0 (3.8-10.6) k/uL RBC 3.77 L (3.80-5.40) m/uL Hgb 13.1 (11.4-16.0) gm/dL Hct 38.8 (34.0-46.0) % MCV 102.7 H (80.0-100.0) fL MCH 34.8 (25.0-35.0) pg MCHC 33.9 (31.0-37.0) g/dL RDW 11.9 (11.5-15.5) % Plt Count 286 (150-450) k/uL MPV 7.1 Neutrophils % 58 % Lymphocytes % 30 % Monocytes % 6 % Eosinophils % 4 % Basophils % 0 % Neutrophils # 3.5 (1.3-7.7) k/uL Lymphocytes # 1.8 (1.0-4.8) k/uL Monocytes # 0.4 (0-1.0) k/uL Eosinophils # 0.2 (0-0.7) k/uL Basophils # 0.0 (0-0.2) k/uL PT 10.8 (10.0-12.5) sec INR 1.0 (<1.2) APTT 25.7 (22.0-30.0) sec Sodium 140 (137-145) mmol/L Potassium 3.8 (3.5-5.1) mmol/L Chloride 110 H (98-107) mmol/L Carbon Dioxide 23 (22-30) mmol/L Anion Gap 7 mmol/L BUN 12 (7-17) mg/dL Creatinine 0.52 (0.52-1.04) mg/dL Est GFR (CKD-EPI)AfAm >90 (>60 ml/min/1.73 sqM) Est GFR (CKD-EPI)NonAf >90 (>60 ml/min/1.73 sqM) Glucose 111 H (74-99) mg/dL Calcium 9.1 (8.4-10.2) mg/dL Magnesium 2.1 (1.6-2.3) mg/dL Total Bilirubin 0.6 (0.2-1.3) mg/dL AST 22 (14-36) U/L ALT 18 (4-34) U/L Alkaline Phosphatase 44 (38-126) U/L Troponin I (0.000-0.034) ng/mL Total Protein 6.6 (6.3-8.2) g/dL Albumin 4.2 (3.5-5.0) g/dL TSH 0.538 (0.465-4.680) mIU/L Urine Opiates Screen (NotDetected) Ur Oxycodone Screen (NotDetected) Urine Methadone Screen (NotDetected) Ur Barbiturates Screen (NotDetected) U Tricyclic Antidepress (NotDetected) Ur Phencyclidine Scrn (NotDetected) Ur Amphetamines Screen (NotDetected) U Methamphetamines Scrn (NotDetected) U Benzodiazepines Scrn (NotDetected) Urine Cocaine Screen (NotDetected) U Marijuana (THC) Screen (NotDetected) 11/17/23 11/17/23 Range/Units 13:06 13:16 WBC (3.8-10.6) k/uL RBC (3.80-5.40) m/uL Hgb (11.4-16.0) gm/dL Hct (34.0-46.0) % MCV (80.0-100.0) fL MCH (25.0-35.0) pg MCHC (31.0-37.0) g/dL RDW (11.5-15.5) % Plt Count (150-450) k/uL MPV Neutrophils % % Lymphocytes % % Monocytes % % Eosinophils % % Basophils % % Neutrophils # (1.3-7.7) k/uL Lymphocytes # (1.0-4.8) k/uL Monocytes # (0-1.0) k/uL Eosinophils # (0-0.7) k/uL Basophils # (0-0.2) k/uL PT (10.0-12.5) sec INR (<1.2) APTT (22.0-30.0) sec Sodium (137-145) mmol/L Potassium (3.5-5.1) mmol/L Chloride (98-107) mmol/L Carbon Dioxide (22-30) mmol/L Anion Gap mmol/L BUN (7-17) mg/dL Creatinine (0.52-1.04) mg/dL Est GFR (CKD-EPI)AfAm (>60 ml/min/1.73 sqM) Est GFR (CKD-EPI)NonAf (>60 ml/min/1.73 sqM) Glucose (74-99) mg/dL Calcium (8.4-10.2) mg/dL Magnesium (1.6-2.3) mg/dL Total Bilirubin (0.2-1.3) mg/dL AST (14-36) U/L ALT (4-34) U/L Alkaline Phosphatase (38-126) U/L Troponin I <0.012 (0.000-0.034) ng/mL Total Protein (6.3-8.2) g/dL Albumin (3.5-5.0) g/dL TSH (0.465-4.680) mIU/L Urine Opiates Screen Not Detected (NotDetected) Ur Oxycodone Screen Not Detected (NotDetected) Urine Methadone Screen Not Detected (NotDetected) Ur Barbiturates Screen Not Detected (NotDetected) U Tricyclic Antidepress Not Detected (NotDetected) Ur Phencyclidine Scrn Not Detected (NotDetected) Ur Amphetamines Screen Not Detected (NotDetected) U Methamphetamines Scrn Not Detected (NotDetected) U Benzodiazepines Scrn Not Detected (NotDetected) Urine Cocaine Screen Not Detected (NotDetected) U Marijuana (THC) Screen Detected H (NotDetected) Disposition Clinical Impression: Palpitations Disposition: HOME SELF-CARE Condition: Good Instructions (If sedation given, give patient instructions): Heart Palpitations (ED) Is patient prescribed a controlled substance at d/c from ED?: No Referrals: Shaq Majano [Primary Care Provider] - 1-2 days Time of Disposition: 14:40
[2023-11-17] MEDS: SODIUM CHLORIDE 0.9% 500 ML 500 ML IV STA (13:15)
[2023-11-17 13:22] LABS: Basophils % (A) 0 %; Eosinophils # (A) 0.2 k/uL (0-0.7); Eosinophils % (A) 4 %; HCT 38.8 % (34.0-46.0); HGB 13.1 gm/dL (11.4-16.0); Lymphocytes # (A) 1.8 k/uL (1.0-4.8); Lymphocytes % (A) 30 %; MCH 34.8 pg (25.0-35.0); MCHC 33.9 g/dL (31.0-37.0); MCV 102.7 fL (80.0-100.0); Mean Platelet Volume 7.1; Monocytes # (A) 0.4 k/uL (0-1.0); Monocytes % (A) 6 %; Neutrophils # (A) 3.5 k/uL (1.3-7.7); Neutrophils % (A) 58 %; Platelet Count 286 k/uL (150-450); RBC 3.77 m/uL (3.80-5.40); RDW 11.9 % (11.5-15.5)
[2023-11-17 13:32] LABS: Partial Thromboplastin Time 25.7 sec (22.0-30.0); Prothrombin Time 10.8 sec (10.0-12.5)
[2023-11-17 13:59] LABS: ALT 18 U/L (4-34); AST 22 U/L (14-36); African American GFR (CKD) >90 (>60 ml/min/1.73 sqM); Albumin 4.2 g/dL (3.5-5.0); Alkaline Phosphatase 44 U/L (38-126); Anion Gap 7 mmol/L; Blood Urea Nitrogen 12 mg/dL (7-17); Calcium 9.1 mg/dL (8.4-10.2); Carbon Dioxide 23 mmol/L (22-30); Chloride 110 mmol/L (98-107); Glucose 111 mg/dL (74-99); Magnesium 2.1 mg/dL (1.6-2.3); Non-African American GFR(CKD) >90 (>60 ml/min/1.73 sqM); Potassium 3.8 mmol/L (3.5-5.1); Sodium 140 mmol/L (137-145); Total Bilirubin 0.6 mg/dL (0.2-1.3); Total Protein 6.6 g/dL (6.3-8.2)
[2023-11-17 14:16] LABS: Amphetamine Screen,Urine Not Detected (NotDetected); Barbiturate Screen,Urine Not Detected (NotDetected); Benzodiazepines Screen,Urine Not Detected (NotDetected); Cocaine Screen,Urine Not Detected (NotDetected); Methadone Screen, Urine Not Detected (NotDetected); Opiate Screen,Urine Not Detected (NotDetected); Oxycodone Screen, Urine Not Detected (NotDetected); Phencyclidine Screen,Urine Not Detected (NotDetected); Tricyclic Antidepressant,Urine Not Detected (NotDetected); Urn Cannabinoid Scrn Detected (NotDetected)
--- NOTE | 2023-11-17 14:46 | XR ---
EXAMINATION TYPE: XR chest 2V DATE OF EXAM: 11/17/2023 COMPARISON: 06/09/2022 INDICATION: Dysrhythmia and chest discomfort TECHNIQUE: Frontal and lateral views of the chest are obtained. FINDINGS: The heart size is normal. The pulmonary vasculature is normal. The lungs are clear. IMPRESSION: 1. No acute pulmonary process.
[2023-11-17 15:33] VITALS: BP 126/93; PULSE 70; RESP 18; TEMP 98
== END 2023-11-17 14:45 | disposition home or self-care (01) ==
LOC: EC 12:29
DX: R00.2 Palpitations (principal); F17.200 Nicotine dependence, unspecified, uncomplicated; Z88.0 Allergy status to penicillin; Z91.09 Other allergy status, other than to drugs and biological substances
CPT/HCPCS: 36415; 71046; 80053; 80306; 83735; 84443; 84484; 85025; 85610; 85730; 93005; 99285

== ENCOUNTER 2024-01-26 05:15 | Emergency (ER) | payer OTHER ==
[2024-01-26 05:18] VITALS: RESP 16
--- NOTE | 2024-01-26 05:48 | ED ---
ENT HPI - General Chief complaint: Dental/Oral Stated complaint: Tooth Pain Time Seen by Provider: 01/26/24 05:26 Source: patient Mode of arrival: ambulatory Limitations: no limitations - History of Present Illness Initial comments: This patient is a 33-year-old woman who presents to evaluation for dental pain. The patient states that she does have an appointment with the dentist coming up the following day but that the pain worsened tonight. MD complaint: tooth pain -: days(s) Location: tooth # (13) Severity: severe Quality: aching Consistency: constant Improves with: none Worsens with: none Context- Dental: history of dental caries Associated Symptoms: toothache - Related Data Home Medications Medication Instructions Recorded Confirmed Omeprazole 20 mg PO AC-BID 10/22/23 11/17/23 Atogepant [Qulipta] 60 mg PO DAILY PRN 11/17/23 11/17/23 Clindamycin [Cleocin] 450 mg PO TID 11/17/23 11/17/23 hydrOXYzine HCL [Atarax] 10 mg PO BID PRN 11/17/23 11/17/23 Previous Rx's Medication Instructions Recorded Clindamycin [Cleocin] 150 mg PO Q6H #4 capsule 01/26/24 HYDROcodone/APAP 5-325MG [[place] 1 tab PO Q4HR PRN 3 Days #6 tab 01/26/24 5-325] Albuterol Inhaler [Ventolin Hfa 1 - 2 puff INHALATION Q6H PRN #1 02/25/24 Inhaler] each Ipratropium-Albuterol Nebulize 3 ml INHALATION QID #25 each 02/25/24 [Duoneb 0.5 mg-3 mg/3 ml Soln] Allergies Allergy/AdvReac Type Severity Reaction Status Date / Time adhesive Allergy Rash/Hives Verified 02/25/24 06:34 amoxicillin [From Amoxil] Allergy Rash/Hives/ Verified 02/25/24 06:34 confusion Review of Systems ROS Statement: Those systems with pertinent positive or pertinent negative responses have been documented in the HPI. ROS Other: All systems not noted in ROS Statement are negative. Constitutional: Denies: fever, chills ENT: Reports: dental pain. Denies: throat pain Respiratory: Denies: dyspnea Cardiovascular: Denies: chest pain, palpitations Neurological: Denies: headache Past Medical History Past Medical History: Atrial Fibrillation, Blood Disorder, Syncope Additional Past Medical History / Comment(s): migraines; ANEMIA,-SEE [facility] History of Any Multi-Drug Resistant Organisms: MRSA Date of last positivie culture/infection: 2014 MDRO Source:: axilla Past Surgical History: Appendectomy, Bladder Surgery, Tonsillectomy Additional Past Surgical History / Comment(s): bladder surgery, larnyx surgery. SINUS SX Past Anesthesia/Blood Transfusion Reactions: Motion Sickness Past Psychological History: PTSD Smoking Status: Current every day smoker Past Alcohol Use History: None Reported Past Drug Use History: Marijuana - Past Family History Mother Family Medical History: Cancer General Exam Limitations: no limitations General appearance: alert, in no apparent distress Head exam: Present: atraumatic, normocephalic Eye exam: Present: normal appearance, EOMI. Absent: scleral icterus, conjunctival injection ENT exam: Present: mucous membranes moist, normal external ear exam, other (Dental caries present. No abscess evident. There is no sublingual fullness.) Neck exam: Present: normal inspection, full ROM, other (No neck fullness or other findings suggestive of Chris's angina). Absent: tenderness, meningismus Respiratory exam: Present: normal lung sounds bilaterally. Absent: respiratory distress, wheezes, rales, rhonchi, stridor Neurological exam: Present: alert Skin exam: Present: warm, dry, intact, normal color. Absent: rash Course Vital Signs 01/26/24 01/26/24 05:15 06:16 Temperature 97.3 F L 98.1 F Pulse Rate 94 74 Respiratory 16 16 Rate Blood Pressure 124/82 124/79 O2 Sat by Pulse 97 98 Oximetry Medical Decision Making - Medical Decision Making Was pt. sent in by a medical professional or institution (, PA, RISK INVESTIGATOR, urgent care, hospital, or care home...) When possible be specific @ -[No] Did you speak to anyone other than the patient for history (EMS, parent, family, police, friend...)? What history was obtained from this source @ -[No] Did you review nursing and triage notes (agree or disagree)? Why? @ -[I reviewed and agree with nursing and triage notes] Were old charts reviewed (outside hosp., previous admission, EMS record, old EKG, old radiological studies, urgent care reports/EKG's, care home records)? Report findings @ -[No old charts were reviewed] Differential Diagnosis (chest pain, altered mental status, abdominal pain women, abdominal pain men, vaginal bleeding, weakness, fever, dyspnea, syncope, he adache, dizziness, GI bleed, back pain, seizure, CVA, palpatations, mental health, musculoskeletal)? @ -Dental caries, abscess, Chris's angina, this list not comprehensive EKG interpreted by me (3pts min.). @ -[As above] X-rays interpreted by me (1pt min.). @ -[None done] CT interpreted by me (1pt min.). @ -[None done] U/S interpreted by me (1pt. min.). @ -[None done] What testing was considered but not performed or refused? (CT, X-rays, U/S, labs)? Why? @ -[None] What meds were considered but not given or refused? Why? @ -[None] Did you discuss the management of the patient with other professionals (professionals i.e. , PA, RISK INVESTIGATOR, lab, RT, psych nurse, director social, bottom turning lathe turner, teacher, public health officer, pillowcase sewer)? Give summary @ -[No] Was smoking cessation discussed for >3mins.? @ -[No] Was critical care preformed (if so, how long)? @ -[No] Were there social determinants of health that impacted care today? How? (Homelessness, low income, unemployed, alcoholism, drug addiction, transportation, low edu. Level, literacy, decrease access to med. care, [facility], rehab)? @ -[No] Was there de-escalation of care discussed even if they declined (Discuss DNR or withdrawal of care, Hospice)? DNR status @ -[No] What co-morbidities impacted this encounter? (DM, HTN, Smoking, COPD, CAD, Cancer, CVA, ARF, Chemo, Hep., AIDS, mental health diagnosis, sleep apnea, morbid obesity)? @ -[None] Was patient admitted / discharged? Hospital course, mention meds given and route, prescriptions, significant lab abnormalities, going to OR and other pertinent info. @ -Patient stable for outpatient course. She does have close follow-up with dentist. Discussed return parameters. Undiagnosed new problem with uncertain prognosis? @ -[No] Drug Therapy requiring intensive monitoring for toxicity (Heparin, Nitro, Insulin, Cardizem)? @ -[No] Were any procedures done? @ -[No] Diagnosis/symptom? @ -[Acute dental pain Dental caries Acute, or Chronic, or Acute on Chronic? @ -[Acute Uncomplicated (without systemic symptoms) or Complicated (systemic symptoms)? @ -[Uncomplicated Side effects of treatment? @ -[No] Exacerbation, Progression, or Severe Exacerbation? @ -[No] Poses a threat to life or bodily function? How? (Chest pain, [place], [place], pneumonia, PE, COPD, DKA, ARF, appy, cholecystitis, CVA, Diverticulitis, Homicidal, Suicidal, threat to staff... and all critical care pts) @ -[No] Disposition Clinical Impression: Dental caries Disposition: HOME SELF-CARE Condition: Fair Instructions (If sedation given, give patient instructions): Toothache (ED) Prescriptions: Clindamycin [Cleocin] 150 mg PO Q6H #4 capsule HYDROcodone/APAP 5-325MG [[place] 5-325] 1 tab PO Q4HR PRN 3 Days #6 tab PRN Reason: Pain Is patient prescribed a controlled substance at d/c from ED?: Yes When asked, does pt state using other controlled substances?: No If prescribed controlled substance>3 days was MAPS reviewed?: Prescribed <3 Days If opioid is for acute pain is fill amount 7 days or less?: Yes If Rx opioid, was Start Talking consent form obtained?: Yes Referrals: Shaq Majano [Primary Care Provider] - 1-2 days
[2024-01-26] MEDS: CLINDAMYCIN 150 MG CAP PO STA (06:07)
[2024-01-26] MEDS: IBUPROFEN 400 MG TAB PO STA (06:08)
[2024-01-26] MEDS: HYDROcodone/APAP 5-325MG 1 EACH TAB PO STA (06:09)
[2024-01-26 06:18] VITALS: BP 124/79; PULSE 74; TEMP 98.1
== END 2024-01-26 06:18 | disposition home or self-care (01) ==
LOC: EC 05:15
DX: K02.9 Dental caries, unspecified (principal); F17.200 Nicotine dependence, unspecified, uncomplicated; Z91.09 Other allergy status, other than to drugs and biological substances; Z88.0 Allergy status to penicillin; Z90.89 Acquired absence of other organs; Z90.49 Acquired absence of other specified parts of digestive tract
CPT/HCPCS: 99285

== ENCOUNTER 2024-02-25 06:19 | Emergency (ER) | payer OTHER ==
--- NOTE | 2024-02-25 06:50 | ED ---
URI HPI - General Chief Complaint: Upper Respiratory Infection Stated Complaint: Cough Time Seen by Provider: 02/25/24 06:48 Source: patient, RN notes reviewed Mode of arrival: ambulatory Limitations: no limitations - History of Present Illness Initial Comments: 33-year-old female presented to the ER with a chief complaint of a cough. Patient has a past medical history significant of asthma. She states for the past 2 days she has had a harsh cough with mild congestion. She does report she recently started classes at a local [employer] and is unsure what she may have been exposed to. She has tried her nebulizer and inhaler with mild relief. She states this morning upon waking she had a coughing episode feeling as if she was "underwater". Was endorsing a mild sore throat. She denies any fevers, chills, myalgias, chest pain, abdominal pain, constipation/diarrhea, urinary complaints or peripheral edema. - Related Data Home Medications Medication Instructions Recorded Confirmed Omeprazole 20 mg PO AC-BID 10/22/23 11/17/23 Atogepant [Qulipta] 60 mg PO DAILY PRN 11/17/23 11/17/23 Clindamycin [Cleocin] 450 mg PO TID 11/17/23 11/17/23 hydrOXYzine HCL [Atarax] 10 mg PO BID PRN 11/17/23 11/17/23 Previous Rx's Medication Instructions Recorded Clindamycin [Cleocin] 150 mg PO Q6H #4 capsule 01/26/24 HYDROcodone/APAP 5-325MG [[place] 1 tab PO Q4HR PRN 3 Days #6 tab 01/26/24 5-325] Albuterol Inhaler [Ventolin Hfa 1 - 2 puff INHALATION Q6H PRN #1 02/25/24 Inhaler] each Ipratropium-Albuterol Nebulize 3 ml INHALATION QID #25 each 02/25/24 [Duoneb 0.5 mg-3 mg/3 ml Soln] Allergies Allergy/AdvReac Type Severity Reaction Status Date / Time adhesive Allergy Rash/Hives Verified 02/25/24 06:34 amoxicillin [From Amoxil] Allergy Rash/Hives/ Verified 02/25/24 06:34 confusion Review of Systems ROS Statement: Those systems with pertinent positive or pertinent negative responses have been documented in the HPI. ROS Other: All systems not noted in ROS Statement are negative. Past Medical History Past Medical History: Atrial Fibrillation, Blood Disorder, Syncope Additional Past Medical History / Comment(s): migraines; ANEMIA,-SEE [facility] History of Any Multi-Drug Resistant Organisms: MRSA Date of last positivie culture/infection: 2014 MDRO Source:: axilla Past Surgical History: Appendectomy, Bladder Surgery, Tonsillectomy Additional Past Surgical History / Comment(s): bladder surgery, larnyx surgery. SINUS SX Past Anesthesia/Blood Transfusion Reactions: Motion Sickness Past Psychological History: PTSD Smoking Status: Current every day smoker Past Alcohol Use History: None Reported Past Drug Use History: Marijuana - Past Family History Mother Family Medical History: Cancer General Exam Limitations: no limitations General appearance: alert, in no apparent distress ENT exam: Present: normal exam, normal oropharynx, mucous membranes moist, TM's normal bilaterally Neck exam: Present: normal inspection. Absent: tenderness, meningismus, lymphadenopathy Respiratory exam: Present: wheezes (bilateral expriatory ) Cardiovascular Exam: Present: regular rate, normal rhythm, normal heart sounds. Absent: systolic murmur, diastolic murmur, rubs, gallop, clicks Extremities exam: Present: normal inspection, full ROM, normal capillary refill. Absent: tenderness, pedal edema, joint swelling, calf tenderness Neurological exam: Present: alert, oriented X3, CN II-XII intact Skin exam: Present: warm, dry, intact, normal color. Absent: rash Course Vital Signs 02/25/24 02/25/24 02/25/24 06:31 07:30 08:34 Temperature 97.9 F Pulse Rate 83 89 Respiratory 18 18 Rate Blood Pressure 118/83 O2 Sat by Pulse 98 Oximetry 02/25/24 02/25/24 08:42 09:00 Temperature 98.1 F Pulse Rate 87 88 Respiratory 16 Rate Blood Pressure 121/83 O2 Sat by Pulse 97 Oximetry Medical Decision Making - Medical Decision Making Was pt. sent in by a medical professional or institution (, PA, [employer], urgent care, hospital, or senior living...) When possible be specific @ -No Did you speak to anyone other than the patient for history (EMS, parent, family, police, friend...)? What history was obtained from this source @ -No Did you review nursing and triage notes (agree or disagree)? Why? @ -I reviewed and agree with nursing and triage notes Were old charts reviewed (outside hosp., previous admission, EMS record, old EKG, old radiological studies, urgent care reports/EKG's, senior living records)? Report findings @ -No old charts were reviewed Differential Diagnosis (chest pain, altered mental status, abdominal pain women, abdominal pain men, vaginal bleeding, weakness, fever, dyspnea, syncope, headache, dizziness, GI bleed, back pain, seizure, CVA, palpatations, mental health, musculoskeletal)? @ -COVID, RSV, influenza, viral sinusitis, pneumonia this list is not meant to be all-inclusive EKG interpreted by me (3pts min.). @ -None X-rays interpreted by me (1pt min.). @ -Chest x-ray interpreted by me negative for focal consolidations, pneumotho rax, pleural effusion. CT interpreted by me (1pt min.). @ -None done U/S interpreted by me (1pt. min.). @ -None done What testing was considered but not performed or refused? (CT, X-rays, U/S, labs)? Why? @ -None What meds were considered but not given or refused? Why? @ -None Did you discuss the management of the patient with other professionals (professionals i.e. , PA, [employer], lab, RT, psych nurse, social problems specialist, radio producer, teacher, credit officer, residential case manager)? Give summary @ -No Was smoking cessation discussed for >3mins.? @ -No Was critical care preformed (if so, how long)? @ -No Were there social determinants of health that impacted care today? How? (Homelessness, low income, unemployed, alcoholism, drug addiction, transportation, low edu. Level, literacy, decrease access to med. care, residential, rehab)? @ -No Was there de-escalation of care discussed even if they declined (Discuss DNR or withdrawal of care, Hospice)? DNR status @ -No What co-morbidities impacted this encounter? (DM, HTN, Smoking, COPD, CAD, Cancer, CVA, ARF, Chemo, Hep., AIDS, mental health diagnosis, sleep apnea, morbid obesity)? @ -Asthma Was patient admitted / discharged? Hospital course, mention meds given and route, prescriptions, significant lab abnormalities, going to OR and other pertinent info. @ -Discharged.-year-old female presented to the ER with a chief complaint of cough. History and physical exam completed. Vitals within normal limits. Patient in no signs of acute distress and nontoxic-appearing. Exam remarkable for expiratory wheezes. Viral swabs obtained negative. Chest x-ray interpreted by me negative for acute cardiopulmonary process. Patient received DuoNeb nebulizer in the ER with improvement. Upon reevaluation, patient resting comfortably in exam room in no signs of acute distress. Patient stable for discharge at this time. DuoNeb nebulizers and albuterol inhaler prescribed. Advised close follow-up with PCP. Strict return parameters discussed. Patient discharged in stable condition. Patient verbally expressed understanding and agreed with care plan. Case discussed with ED attending, Dr. Persaud. Undiagnosed new problem with uncertain prognosis? @ -No Drug Therapy requiring intensive monitoring for toxicity (Heparin, Nitro, Insulin, Cardizem)? @ -No Were any procedures done? @ -No Diagnosis/symptom? @ -Viral illness/acute viral sinusitis Acute, or Chronic, or Acute on Chronic? @ -Acute Uncomplicated (without systemic symptoms) or Complicated (systemic symptoms)? @ -Uncomplicated Side effects of treatment? @ -No Exacerbation, Progression, or Severe Exacerbation? @ -No Poses a threat to life or bodily function? How? (Chest pain, [place], [place], pneumonia, PE, COPD, DKA, ARF, appy, cholecystitis, CVA, Diverticulitis, Homicidal, Suicidal, threat to staff... and all critical care pts) @ -No - Lab Data Lab Results 02/25/24 Range/Units 07:07 Influenza Type A (PCR) Not Detected (Not Detectd) Influenza Type B (PCR) Not Detected (Not Detectd) RSV (PCR) Not Detected (Not Detectd) SARS-CoV-2 (PCR) Not Detected (Not Detectd) - Radiology Data Radiology results: report reviewed, image reviewed Disposition Clinical Impression: Viral infection, Acute viral sinusitis Disposition: HOME SELF-CARE Condition: Stable Instructions (If sedation given, give patient instructions): Asthma (ED) Additional Instructions: Follow-up with PCP next 1-2 days. Return to ER for any new or worsening concerns. Prescriptions: Ipratropium-Albuterol Nebulize [Duoneb 0.5 mg-3 mg/3 ml Soln] 3 ml INHALATION QID #25 each Albuterol Inhaler [Ventolin Hfa Inhaler] 1 - 2 puff INHALATION Q6H PRN #1 each PRN Reason: Shortness Of Breath Is patient prescribed a controlled substance at d/c from ED?: No Referrals: Shaq Majano [Primary Care Provider] - 1-2 days Time of Disposition: 08:34
--- NOTE | 2024-02-25 07:39 | XR ---
EXAMINATION TYPE: XR chest 2V DATE OF EXAM: 02/25/2024 COMPARISON: 11/17/2023 HISTORY: 33-year-old female with cough and difficulty breathing TECHNIQUE: PA and lateral views FINDINGS: The cardiomediastinal silhouette, aorta, and pulmonary vasculature are within normal limits. Lungs an d pleural spaces are clear. IMPRESSION: No acute cardiopulmonary process.
[2024-02-25] MEDS: IPRATROPIUM-ALBUTEROL 3 ML NEB INHALATION STA (08:34)
[2024-02-25 09:02] VITALS: BP 121/83; PULSE 88; RESP 16; TEMP 98.1
== END 2024-02-25 09:00 | disposition home or self-care (01) ==
LOC: EC 06:19
CPT/HCPCS: 71046; 87636; 94640; 99283

== ENCOUNTER 2024-03-08 20:52 | Emergency (ER) | payer OTHER ==
[2024-03-08] MEDS: IBUPROFEN 400 MG TAB PO STA (22:06)
[2024-03-08 23:14] VITALS: RESP 18
--- NOTE | 2024-03-09 00:13 | XR ---
EXAM: XR Pelvis, 1 or 2 Views CLINICAL HISTORY: ITS.REASON XR Reason: pain TECHNIQUE: Frontal view of the pelvis. COMPARISON: No relevant prior studies available. FINDINGS: Bones/joints: Unremarkable. No acute fracture. No dislocation. Soft tissues: Unremarkable. IMPRESSION: Normal pelvis x-ray.
--- NOTE | 2024-03-09 00:24 | ED ---
Lower Extremity Injury HPI - General Chief Complaint: Extremity Injury, Lower Stated Complaint: Left Hip Pain Time Seen by Provider: 03/08/24 21:38 Source: patient Mode of arrival: ambulatory Limitations: no limitations - History of Present Illness Initial Comments: 33-year-old female presenting chief complaint of left hip pain. Patient states that she was at karate tonight when she started experiencing this pain. Pain is in the hip and groin. It is a sharp and stabbing pain that worsens with flexion of the hip. He does have some pain that extends down the left lower extremity as well. She states that she will need a work note as she has a work study assignment tomorrow. No numbness or tingling. She still able to ambulate. - Related Data Home Medications Medication Instructions Recorded Confirmed Omeprazole 20 mg PO AC-BID 10/22/23 11/17/23 Atogepant [Qulipta] 60 mg PO DAILY PRN 11/17/23 11/17/23 Clindamycin [Cleocin] 450 mg PO TID 11/17/23 11/17/23 hydrOXYzine HCL [Atarax] 10 mg PO BID PRN 11/17/23 11/17/23 Previous Rx's Medication Instructions Recorded Clindamycin [Cleocin] 150 mg PO Q6H #4 capsule 01/26/24 HYDROcodone/APAP 5-325MG [[place] 1 tab PO Q4HR PRN 3 Days #6 tab 01/26/24 5-325] Albuterol Inhaler [Ventolin Hfa 1 - 2 puff INHALATION Q6H PRN #1 02/25/24 Inhaler] each Ipratropium-Albuterol Nebulize 3 ml INHALATION QID #25 each 02/25/24 [Duoneb 0.5 mg-3 mg/3 ml Soln] Allergies Allergy/AdvReac Type Severity Reaction Status Date / Time adhesive Allergy Rash/Hives Verified 03/08/24 21:30 amoxicillin [From Amoxil] Allergy Rash/Hives/ Verified 03/08/24 21:30 confusion Review of Systems ROS Statement: Those systems with pertinent positive or pertinent negative responses have been documented in the HPI. ROS Other: All systems not noted in ROS Statement are negative. Past Medical History Past Medical History: Atrial Fibrillation, Blood Disorder, Syncope Additional Past Medical History / Comment(s): migraines; ANEMIA,-SEE [facility] History of Any Multi-Drug Resistant Organisms: MRSA Date of last positivie culture/infection: 2014 MDRO Source:: axilla Past Surgical History: Appendectomy, Bladder Surgery, Tonsillectomy Additional Past Surgical History / Comment(s): bladder surgery, larnyx surgery. SINUS SX Past Anesthesia/Blood Transfusion Reactions: Motion Sickness Past Psychological History: PTSD Smoking Status: Current every day smoker Past Alcohol Use History: None Reported Past Drug Use History: Marijuana - Past Family History Mother Family Medical History: Cancer General Exam Limitations: no limitations General appearance: alert, in no apparent distress Head exam: Present: atraumatic, normocephalic, normal inspection Eye exam: Present: normal appearance, EOMI Neck exam: Present: normal inspection. Absent: meningismus Respiratory exam: Absent: respiratory distress Cardiovascular Exam: Present: regular rate Left Hip exam: Present: normal inspection, tenderness. Absent: full ROM Neurovascular tendon exam: Present: no vascular compromise Neurological exam: Present: alert, oriented X3 Psychiatric exam: Present: normal affect, normal mood Skin exam: Present: warm, dry Course Vital Signs 03/08/24 03/08/24 03/09/24 21:30 23:11 00:41 Temperature 98.0 F 98.1 F Pulse Rate 77 77 78 Respiratory 19 18 18 Rate Blood Pressure 111/69 110/70 110/68 O2 Sat by Pulse 97 98 97 Oximetry Medical Decision Making - Medical Decision Making Was pt. sent in by a medical professional or institution (, PA, H[employer]TING SALES LEADER, urgent care, hospital, or assisted...) When possible be specific @ -No Did you speak to anyone other than the patient for history (EMS, parent, family, police, friend...)? What history was obtained from this source @ -No Did you review nursing and triage notes (agree or disagree)? Why? @ -I reviewed and agree with nursing and triage notes Were old charts reviewed (outside hosp., previous admission, EMS record, old EKG, old radiological studies, urgent care reports/EKG's, assisted records)? Report findings @ -No old charts were reviewed Differential Diagnosis (chest pain, altered mental status, abdominal pain women, abdominal pain men, vaginal bleeding, weakness, fever, dyspnea, syncope, headache, dizziness, GI bleed, back pain, seizure, CVA, palpatations, mental health, musculoskeletal)? @ -Differential Musculoskeletal Muscular strain, contusion, ligament sprain, fracture, arthritis, septic arthritis, bursitis, cellulitis, muscle spasm, nerve compression, DVT, arterial occlusion, herpes zoster, electrolyte abnormality, tumor.... This is not meant to be in all inclusive list EKG interpreted by me (3pts min.). @ -As above X-rays interpreted by me (1pt min.). @ -X-ray shows normal pelvis CT interpreted by me (1pt min.). @ -None done U/S interpreted by me (1pt. min.). @ -None done What testing was considered but not performed or refused? (CT, X-rays, U/S, labs)? Why? @ -None What meds were considered but not given or refused? Why? @ -None Did you discuss the management of the patient with other professionals (professionals i.e. , PA, H[employer]TING SALES LEADER, lab, RT, psych nurse, social secretary, fabrication engineer, teacher, aboriginal liaison officer, gearcase assembler)? Give summary @ -No Was smoking cessation discussed for >3mins.? @ -No Was critical care preformed (if so, how long)? @ -No Were there social determinants of health that impacted care today? How? (Homelessness, low income, unemployed, alcoholism, drug addiction, transportation, low edu. Level, literacy, decrease access to med. care, custodial, rehab)? @ -No Was there de-escalation of care discussed even if they declined (Discuss DNR or withdrawal of care, Hospice)? DNR status @ -No What co-morbidities impacted this encounter? (DM, HTN, Smoking, COPD, CAD, Cancer, CVA, ARF, Chemo, Hep., AIDS, mental health diagnosis, sleep apnea, morbid obesity)? @ -None Was patient admitted / discharged? Hospital course, mention meds given and route, prescriptions, significant lab abnormalities, going to OR and other pertinent info. @ -33-year-old female presenting with chief complaint of left hip pain after karate this evening. On exam she has pain with hip flexion. X-ray shows no fracture or dislocation. Patient is educated on today's findings and supportive management at home. Provided with work note. Provided with orthopedic referral if needed. Discharged. Follow-up with PCP. Report back to ER with any new or worsening symptoms. Discussed return parameters and answered all questions. Patient conveyed verbal understanding and agreed to the plan. I discussed this case in detail with my attending Dr. Lopez Undiagnosed new problem with uncertain prognosis? @ -No Drug Therapy requiring intensive monitoring for toxicity (Heparin, Nitro, Insulin, Cardizem)? @ -No Were any procedures done? @ -No Diagnosis/symptom? @ -groin strain Acute, or Chronic, or Acute on Chronic? @ -Acute Uncomplicated (without systemic symptoms) or Complicated (systemic symptoms)? @ -Uncomplicated Side effects of treatment? @ -No Exacerbation, Progression, or Severe Exacerbation? @ -No Poses a threat to life or bodily function? How? (Chest pain, [place], [place], pneumonia, PE, COPD, DKA, ARF, appy, cholecystitis, CVA, Diverticulitis, Homicidal, Suicidal, threat to staff... and all critical care pts) @ -No Disposition Clinical Impression: Groin strain Disposition: HOME SELF-CARE Condition: Good Instructions (If sedation given, give patient instructions): Groin Strain (ED) Additional Instructions: Follow-up with orthopedics and PCP. Report back to ER with any new or worsening symptoms. Is patient prescribed a controlled substance at d/c from ED?: No Referrals: Shaq Majano [Primary Care Provider] - 1-2 days Anthony Barnes MD [STAFF PHYSICIAN] - 1-2 days Time of Disposition: 00:24
[2024-03-09 00:43] VITALS: BP 110/68; PULSE 78; TEMP 98.1
== END 2024-03-09 00:41 | disposition home or self-care (01) ==
LOC: EC 20:52
CPT/HCPCS: 73502; 99283

== ENCOUNTER 2024-03-17 06:02 | Day surgery (SDC) | payer OTHER ==
[2024-03-15 13:31] VITALS: BMI 18.2
[2024-03-17 06:42] VITALS: RESP 16; TEMP 98.2
[2024-03-17] MEDS: LACTATED RINGERS 1,000 ML IV SCH (06:58)
[2024-03-17] MEDS: IV FLUID CONTINUATION 1,000 ML IV ONE (06:59)
[2024-03-17 07:00] LABS: Glucose,Whole Blood 94 mg/dL (70-110)
[2024-03-17] MEDS ORDERED: PROPOFOL 10 MG/ML 20 ML VIAL IV ONE (07:00)
[2024-03-17] MEDS ORDERED: LIDOCAINE 1% INJ 10MG/ML (20 ML MDV) ONE (07:00)
--- NOTE | 2024-03-17 07:11 | P.PCN ---
Date of Procedure: 03/17/24 Procedure(s) Performed: BRIEF HISTORY: Patient is a 33-year-old, pleasant, white female scheduled for an upper endoscopy as well as colonoscopy today as a part evaluation of chronic intermittent nausea vomiting and abdominal pain associate with change in bowel habits for the last 10 years duration. She has been on omeprazole 20 mg daily with some improvement in his symptoms. She could not take colon prep yesterday because of the nausea vomiting and hence only upper endoscopy is being done today. PROCEDURE PERFORMED: Esophagogastroduodenoscopy with biopsy. PREOPERATIVE DIAGNOSIS: Chronic abdominal pain intermittent nausea vomiting for the last 10 years duration. IV sedation per anesthesia. PROCEDURE: After informed consent was obtained, the patient was brought into the endoscopy unit. IV sedation was administered by Anesthesia under continuous monitoring. Initially the Olympus GIF-140 video endoscope was inserted into the mouth. Esophagus intubated without any difficulty. It was gradually advanced into the stomach and duodenum and carefully examined. The bulb and the second part of the duodenum appeared normal. Biopsies were done from the duodenum to evaluate for celiac disease. The scope at this time was withdrawn to the stomach, adequately insufflated with air, and upon careful examination, mucosa of the antrum, patchy areas of erythema consistent with gastritis and biopsies were done for this area. Mucosa of the body, cardia and the fundus appeared normal. The scope was then withdrawn into the esophagus. Very small sliding- type hiatal hernia noted. The GE junction was located at 39 cm from the incisors. The esophagus appeared normal. There were no erosions or ulcerations seen biopsies were done from the distal esophagus and the patient tolerated the procedure well. IMPRESSION: 1. Mild antral gastritis. 2. Small hiatal hernia. RECOMMENDATIONS: The findings of this examination were discussed with the patient as well as her family. She was advised to follow-up with the biopsy results. In the meantime continue with omeprazole 20 mg twice a day and follow antireflux measures. In the office in 2 weeks. She was advised to call the office and reschedule for a colonoscopy with a 2-day prep.
[2024-03-17 08:07] VITALS: BP 105/68; PULSE 64
== END 2024-03-17 08:09 ==
LOC: ORWHC2ENDO 06:02
PROVIDERS: ATTEND Internal Medicine Gastroenterology
DX: K31.9 Disease of stomach and duodenum, unspecified (principal); K44.9 Diaphragmatic hernia without obstruction or gangrene; K29.70 Gastritis, unspecified, without bleeding; G89.29 Other chronic pain; I48.91 Unspecified atrial fibrillation; J45.909 Unspecified asthma, uncomplicated; I42.9 Cardiomyopathy, unspecified; F17.210 Nicotine dependence, cigarettes, uncomplicated; Z79.51 Long term (current) use of inhaled steroids; Z79.899 Other long term (current) drug therapy; Z88.0 Allergy status to penicillin
CPT/HCPCS: 43239; 81025; 88305

== ENCOUNTER 2024-05-31 09:56 | Emergency (ER) | payer OTHER ==
[2024-05-31 10:02] VITALS: RESP 20; TEMP 98
--- NOTE | 2024-05-31 10:24 | ED ---
General Adult HPI - General Chief complaint: ENT Stated complaint: post op issues Time Seen by Provider: 05/31/24 10:05 Source: patient, RN notes reviewed Mode of arrival: ambulatory Limitations: no limitations - History of Present Illness Initial comments: 33-year-old female presents to the emergency department for evaluation of nosebleed. Patient reports that she had sinus surgery on Wednesday. She states that she attempted to advance her diet on Wednesday and this caused her to vomit. She states that following that she had noticed blood in the back of her throat which has continued since then. She is not currently having any active bleeding. She reports that the surgery was performed by Dr. Torres at [facility]. She denies any recent fever. Denies any pain. She does report a history of anemia. - Related Data Previous Rx's Medication Instructions Recorded Albuterol Inhaler [Ventolin Hfa 1 - 2 puff INHALATION Q6H PRN #1 02/25/24 Inhaler] each Ipratropium-Albuterol Nebulize 3 ml INHALATION QID #25 each 02/25/24 [Duoneb 0.5 mg-3 mg/3 ml Soln] Allergies Allergy/AdvReac Type Severity Reaction Status Date / Time adhesive Allergy Rash/Hives Verified 05/31/24 10:03 amoxicillin [From Amoxil] Allergy Rash/Hives/ Verified 05/31/24 10:03 confusion Review of Systems ROS Statement: Those systems with pertinent positive or pertinent negative responses have been documented in the HPI. ROS Other: All systems not noted in ROS Statement are negative. Past Medical History Past Medical History: Atrial Fibrillation, Blood Disorder, Syncope Additional Past Medical History / Comment(s): migraines; ANEMIA,-SEE [facility], PT NOT SURE ABOUT A FIB. HEART ARRTHYMIA, CARDIOMYOPATHY, STATES THAT WHEN SHE BREATHES IT FEELS LIKE SHE IS UNDERWATER, HX POLYPS IN GI TRACT FROM THROAT TO COLON, BACTERIAL INFECTION (E-COLI)2011 ON KIDNEY-WAS IN INDUCED COMA FOR 3 DAYS. TRANSVERE PROCESS FX L3-2019, HYPOGLYCEMIA History of Any Multi-Drug Resistant Organisms: MRSA Date of last positivie culture/infection: 2014 MDRO Source:: axilla Past Surgical History: Adenoidectomy, Bladder Surgery, Tonsillectomy Additional Past Surgical History / Comment(s): bladder surgery, larnyx surgery. SINUS SX x3 , Past Anesthesia/Blood Transfusion Reactions: Previous Problems w/ Anesthesia, Motion Sickness Additional Past Anesthesia/Blood Transfusion Reaction / Comment(s): WAKES UP CRYING OR SCREAMING (R/T CHILDHOOD ABUSE) Past Psychological History: PTSD Smoking Status: Current every day smoker Past Alcohol Use History: None Reported Past Drug Use History: Marijuana - Past Family History Mother Family Medical History: Cancer Additional Family Medical History / Comment(s): GRANDMOTHER HAD CANCER General Exam Limitations: no limitations General appearance: alert, in no apparent distress Head exam: Present: atraumatic, normocephalic, normal inspection Eye exam: Present: normal appearance, PERRL, EOMI. Absent: scleral icterus, conjunctival injection, periorbital swelling ENT exam: Present: normal exam, normal oropharynx, mucous membranes moist Neck exam: Present: normal inspection. Absent: tenderness, meningismus, lymphadenopathy Respiratory exam: Present: normal lung sounds bilaterally. Absent: respiratory distress, wheezes, rales, rhonchi, stridor Cardiovascular Exam: Present: regular rate, normal rhythm, normal heart sounds. Absent: systolic murmur, diastolic murmur, rubs, gallop, clicks Neurological exam: Present: alert, oriented X3 Psychiatric exam: Present: normal affect, normal mood Skin exam: Present: warm, dry, intact, normal color. Absent: rash Course Vital Signs 05/31/24 05/31/24 09:57 11:53 Temperature 98 F 98 F Pulse Rate 108 H 99 Respiratory 20 20 Rate Blood Pressure 111/72 108/76 O2 Sat by Pulse 99 99 Oximetry Medical Decision Making - Medical Decision Making Was pt. sent in by a medical professional or institution (, PA, INVESTMENT EXECUTIVE, urgent care, hospital, or group home...) When possible be specific @ -[No] Did you speak to anyone other than the patient for history (EMS, parent, family, police, friend...)? What history was obtained from this source @ -[No] Did you review nursing and triage notes (agree or disagree)? Why? @ -[I reviewed and agree with nursing and triage notes] Were old charts reviewed (outside hosp., previous admission, EMS record, old EKG, old radiological studies, urgent care reports/EKG's, group home records)? Report findings @ -No old charts were reviewed Differential Diagnosis (chest pain, altered mental status, abdominal pain women, abdominal pain men, vaginal bleeding, weakness, fever, dyspnea, syncope, headache, dizziness, GI bleed, back pain, seizure, CVA, palpatations, mental health, musculoskeletal)? @ -Epistaxis, sinus infection, EKG interpreted by me (3pts min.). @ -None X-rays interpreted by me (1pt min.). @ -None done CT interpreted by me (1pt min.). @ -None done U/S interpreted by me (1pt. min.). @ -None done What testing was considered but not performed or refused? (CT, X-rays, U/S, labs)? Why? @ -None What meds were considered but not given or refused? Why? @ -None Did you discuss the management of the patient with other professionals (professionals i.e. , PA, INVESTMENT EXECUTIVE, lab, RT, psych nurse, psychiatric social worker, sports marketing specialist, teacher, navy airspace officer, supervisor case loading)? Give summary @ -Management was discussed with the patient's surgeon, Dr. Torres who is agreeable with the plan of discharge Was smoking cessation discussed for >3mins.? @ -No Was critical care preformed (if so, how long)? @ -No Were there social determinants of health that impacted care today? How? (Homelessness, low income, unemployed, alcoholism, drug addiction, transporta tion, low edu. Level, literacy, decrease access to med. care, half-way, rehab)? @ -No Was there de-escalation of care discussed even if they declined (Discuss DNR or withdrawal of care, Hospice)? DNR status @ -No What co-morbidities impacted this encounter? (DM, HTN, Smoking, COPD, CAD, Cancer, CVA, ARF, Chemo, Hep., AIDS, mental health diagnosis, sleep apnea, morbid obesity)? @ -None Was patient admitted / discharged? Hospital course, mention meds given and route, prescriptions, significant lab abnormalities, going to OR and other pertinent info. @ -Discharged. Patient presented to the emergency department for evaluation of nosebleed. Patient reports having sinus surgery on Wednesday. On examination, patient is not having any active bleeding. Laboratory studies obtained, hemoglobin stable at 13. Case was discussed with the patient's surgeon, Dr. Torres who was agreeable with plan of discharge. Patient is scheduled to follow-up outpatient tomorrow afternoon. She was provided with Afrin in case of repeat bleeding. She will be discharged home. She is understanding and agreeable with this plan. Patient discussed with Dr. Mackay Undiagnosed new problem with uncertain prognosis? @ -No Drug Therapy requiring intensive monitoring for toxicity (Heparin, Nitro, Insulin, Cardizem)? @ -No Were any procedures done? @ -No Diagnosis/symptom? @ -Epistaxis Acute, or Chronic, or Acute on Chronic? @ -Acute Uncomplicated (without systemic symptoms) or Complicated (systemic symptoms)? @ -Uncomplicated Side effects of treatment? @ -No Exacerbation, Progression, or Severe Exacerbation? @ -No Poses a threat to life or bodily function? How? (Chest pain, [place], [place], pneumonia, PE, COPD, DKA, ARF, appy, cholecystitis, CVA, Diverticulitis, Homicidal, Suicidal, threat to staff... and all critical care pts) @ -No - Lab Data Result diagrams: 05/31/24 10:24 05/31/24 10:24 Lab Results 05/31/24 05/31/24 05/31/24 Range/Units 10:24 10:24 10:24 WBC 5.8 (3.8-10.6) k/uL RBC 3.76 L (3.80-5.40) m/uL Hgb 13.0 (11.4-16.0) gm/dL Hct 38.4 (34.0-46.0) % MCV 101.9 H (80.0-100.0) fL MCH 34.4 (25.0-35.0) pg MCHC 33.7 (31.0-37.0) g/dL RDW 11.6 (11.5-15.5) % Plt Count 278 (150-450) k/uL MPV 6.8 Neutrophils % 53 % Lymphocytes % 36 % Monocytes % 5 % Eosinophils % 4 % Basophils % 0 % Neutrophils # 3.0 (1.3-7.7) k/uL Lymphocytes # 2.0 (1.0-4.8) k/uL Monocytes # 0.3 (0-1.0) k/uL Eosinophils # 0.2 (0-0.7) k/uL Basophils # 0.0 (0-0.2) k/uL PT 10.3 (10.0-12.5) sec INR 0.9 (<1.2) APTT 24.3 (22.0-30.0) sec Sodium 137 (137-145) mmol/L Potassium 3.9 (3.5-5.1) mmol/L Chloride 110 H (98-107) mmol/L Carbon Dioxide 21 L (22-30) mmol/L Anion Gap 6 mmol/L BUN 12 (7-17) mg/dL Creatinine 0.60 (0.52-1.04) mg/dL Est GFR (CKD-EPI)AfAm >90 (>60 ml/min/1.73 sqM) Est GFR (CKD-EPI)NonAf >90 (>60 ml/min/1.73 sqM) Glucose 94 (74-99) mg/dL Calcium 9.1 (8.4-10.2) mg/dL Total Bilirubin 0.5 (0.2-1.3) mg/dL AST 21 (14-36) U/L ALT 17 (4-34) U/L Alkaline Phosphatase 42 (38-126) U/L Total Protein 6.4 (6.3-8.2) g/dL Albumin 4.2 (3.5-5.0) g/dL Disposition Clinical Impression: Epistaxis Disposition: HOME SELF-CARE Condition: Stable Additional Instructions: Please follow up with Dr. Torres tomorrow as scheduled. Return to the emergency department for new or worsening symptoms. Is patient prescribed a controlled substance at d/c from ED?: No Referrals: Shaq Majano [Primary Care Provider] - 1-2 days
[2024-05-31 10:48] LABS: Basophils % (A) 0 %; Eosinophils # (A) 0.2 k/uL (0-0.7); Eosinophils % (A) 4 %; HCT 38.4 % (34.0-46.0); Lymphocytes % (A) 36 %; MCH 34.4 pg (25.0-35.0); MCHC 33.7 g/dL (31.0-37.0); MCV 101.9 fL (80.0-100.0); Mean Platelet Volume 6.8; Monocytes # (A) 0.3 k/uL (0-1.0); Monocytes % (A) 5 %; Neutrophils % (A) 53 %; Platelet Count 278 k/uL (150-450); RBC 3.76 m/uL (3.80-5.40); RDW 11.6 % (11.5-15.5); WBC 5.8 k/uL (3.8-10.6)
[2024-05-31 11:03] LABS: INR 0.9 (<1.2); Partial Thromboplastin Time 24.3 sec (22.0-30.0); Prothrombin Time 10.3 sec (10.0-12.5)
[2024-05-31 11:08] LABS: ALT 17 U/L (4-34); AST 21 U/L (14-36); African American GFR (CKD) >90 (>60 ml/min/1.73 sqM); Albumin 4.2 g/dL (3.5-5.0); Alkaline Phosphatase 42 U/L (38-126); Anion Gap 6 mmol/L; Blood Urea Nitrogen 12 mg/dL (7-17); Calcium 9.1 mg/dL (8.4-10.2); Carbon Dioxide 21 mmol/L (22-30); Chloride 110 mmol/L (98-107); Glucose 94 mg/dL (74-99); Non-African American GFR(CKD) >90 (>60 ml/min/1.73 sqM); Potassium 3.9 mmol/L (3.5-5.1); Sodium 137 mmol/L (137-145); Total Bilirubin 0.5 mg/dL (0.2-1.3); Total Protein 6.4 g/dL (6.3-8.2)
[2024-05-31] MEDS: OXYMETAZOLINE 0.05% NASL SPRAY 1 SPRAY BOTTLE NASAL STA (11:50)
[2024-05-31 11:55] VITALS: BP 108/76; PULSE 99
== END 2024-05-31 11:55 | disposition home or self-care (01) ==
LOC: EC 09:56
DX: R04.0 Epistaxis (principal); F17.200 Nicotine dependence, unspecified, uncomplicated; Z88.0 Allergy status to penicillin; Z88.8 Allergy status to other drugs, medicaments and biological substances
CPT/HCPCS: 36415; 80053; 85025; 85610; 85730; 99283

== ENCOUNTER 2024-09-12 00:37 | Emergency (ER) | payer OTHER ==
[2024-09-12 00:44] VITALS: RESP 16; TEMP 98.3
--- NOTE | 2024-09-12 02:01 | ED ---
Extremity Problem HPI - General Source: patient Mode of arrival: ambulatory Limitations: no limitations <Figueroa Isidro - Last Filed: 09/12/24 04:24> <Armida Monae - Last Filed: 09/12/24 04:51> - General Chief complaint: Extremity Problem,Nontraumatic Stated complaint: R Arm pain - History of Present Illness Initial comments: Patient is a 33-year-old female with history of migraines and anemia presents to the ED with right upper extremity pain. Patient states that she started having some right wrist pain 2 days ago and the pain progressively moved upward into her right and right shoulder. Patient was resting when the pain started. Right now she endorses a pressure squeezing-like pain with some tingling and numbness. Patient denies any recent injury or trauma to her right upper extremity. Patient has never had pain like this before. Patient does report doing a lot of handwriting and notetaking recently. Denies any prior history of blood clots. Patient denies fever, chills, chest pain, shortness of breath, nausea, vomiting, belly pain, cough, runny nose, sore throat, dysuria, diarrhea, constipation, lower extremity swelling. (Figueroa Isidro) - Related Data Previous Rx's Medication Instructions Recorded Albuterol Inhaler [Ventolin Hfa 1 - 2 puff INHALATION Q6H PRN #1 02/25/24 Inhaler] each Ipratropium-Albuterol Nebulize 3 ml INHALATION QID #25 each 02/25/24 [Duoneb 0.5 mg-3 mg/3 ml Soln] Allergies Allergy/AdvReac Type Severity Reaction Status Date / Time adhesive Allergy Rash/Hives Verified 09/12/24 00:40 amoxicillin [From Amoxil] Allergy Rash/Hives/ Verified 09/12/24 00:40 confusion Review of Systems ROS Other: All systems not noted in ROS Statement are negative. Constitutional: Denies: fever, chills Respiratory: Denies: cough, dyspnea Cardiovascular: Denies: chest pain, palpitations Endocrine: Denies: fatigue Gastrointestinal: Denies: abdominal pain, nausea, vomiting, diarrhea, constipation Genitourinary: Denies: urgency, dysuria, frequency, hematuria Musculoskeletal: Reports: myalgia Neurological: Reports: numbness, paresthesias. Denies: weakness <Figueroa Isidro - Last Filed: 09/12/24 04:24> ROS Other: All systems not noted in ROS Statement are negative. <Armida Monae - Last Filed: 09/12/24 04:51> ROS Statement: Those systems with pertinent positive or pertinent negative responses have been documented in the HPI. Past Medical History Past Medical History: Atrial Fibrillation, Blood Disorder, Syncope Additional Past Medical History / Comment(s): migraines; ANEMIA,-SEE [facility], PT NOT SURE ABOUT A FIB. HEART ARRTHYMIA, CARDIOMYOPATHY, STATES THAT WHEN SHE BREATHES IT FEELS LIKE SHE IS UNDERWATER, HX POLYPS IN GI TRACT FROM THROAT TO COLON, BACTERIAL INFECTION (E-COLI)2011 ON KIDNEY-WAS IN INDUCED COMA FOR 3 DAYS. TRANSVERE PROCESS FX L3-2019, HYPOGLYCEMIA History of Any Multi-Drug Resistant Organisms: MRSA Date of last positivie culture/infection: 2014 MDRO Source:: axilla Past Surgical History: Adenoidectomy, Bladder Surgery, Tonsillectomy Additional Past Surgical History / Comment(s): bladder surgery, larnyx surgery. SINUS SX x3 , Past Anesthesia/Blood Transfusion Reactions: Previous Problems w/ Anesthesia, Motion Sickness Additional Past Anesthesia/Blood Transfusion Reaction / Comment(s): WAKES UP CRYING OR SCREAMING (R/T CHILDHOOD ABUSE) Past Psychological History: PTSD Smoking Status: Current every day smoker Past Alcohol Use History: None Reported Past Drug Use History: Marijuana - Past Family History Mother Family Medical History: Cancer Additional Family Medical History / Comment(s): GRANDMOTHER HAD CANCER <Figueroa Isidro - Last Filed: 09/12/24 04:24> General Exam Limitations: no limitations <Figueroa Isidro - Last Filed: 09/12/24 04:24> - General Exam Comments Initial Comments: GENERAL: This is a 33-year-old in no apparent distress at the time of examination. Pleasant and cooperative. HEENT: Head is atraumatic, normocephalic. RESPIRATORY: Clear to auscultation bilaterally. No wheezing, rhonchi, stridor, crackles. CARDIOVASCULAR: Regular rate and rhythm. No systolic or diastolic murmur. GASTROINTESTINAL: No abdominal distention. Abdomen soft and nontender to palp ation. INTEGUMENTARY: No rashes. No cellulitis. EXTREMITIES: 2+ radial pulses. No evidence of lower extremity edema. Right forearm tender to palpation. No signs of swelling, erythema, discoloration of the right upper extremity. NEUROLOGIC: Cranial nerves II-XII intact. Bilateral upper and lower extremity muscle strength and sensation intact PSYCHIATRIC: Awake, alert, and oriented X 3. Appropriate affect. Intact judgement and insight. (Figueroa Isidro) Course Vital Signs 09/12/24 09/12/24 00:40 04:30 Temperature 98.3 F Pulse Rate 69 62 Respiratory 16 16 Rate Blood Pressure 131/87 122/75 O2 Sat by Pulse 98 96 Oximetry Medical Decision Making - Lab Data Result diagrams: 09/12/24 03:18 <Figueroa Isidro - Last Filed: 09/12/24 04:24> - Lab Data Result diagrams: 09/12/24 03:18 <Armida Monae - Last Filed: 09/12/24 04:51> - Medical Decision Making Was pt. sent in by a medical professional or institution (, GLORIA, SHOOTING GALLERY OPERATOR, urgent care, hospital, or intermediate...) When possible be specific @ -No Did you speak to anyone other than the patient for history (EMS, parent, family, police, friend...)? What history was obtained from this source @ -No Did you review nursing and triage notes (agree or disagree)? Why? @ -I reviewed and agree with nursing and triage notes Were old charts reviewed (outside hosp., previous admission, EMS record, old EKG, old radiological studies, urgent care reports/EKG's, intermediate records)? Report findings @ -No old charts were reviewed Differential Diagnosis? @ -Cellulitis, carpal tunnel, rotator cuff injury EKG interpreted by me (3pts min.). @ -Sinus rhythm with ventricular rate of 64 bpm, QTc 439 ms X-rays interpreted by me (1pt min.). @ -None CT interpreted by me (1pt min.). @ -None done U/S interpreted by me (1pt. min.). @ -None done What testing was considered but not performed or refused? (CT, X-rays, U/S, labs)? Why? @ -None What meds were considered but not given or refused? Why? @ -None Did you discuss the management of the patient with other professionals (professionals i.e. , PA, SHOOTING GALLERY OPERATOR, lab, RT, psych nurse, social media director, soft work wrapper layer and examiner, teacher, armored vehicle officer, case management coordinator)? Give summary @ -Discussed with attending physician Was smoking cessation discussed for >3mins.? @ -No Was critical care preformed (if so, how long)? @ -No Were there social determinants of health that impacted care today? How? (Homelessness, low income, unemployed, alcoholism, drug addiction, transportation, low edu. Level, literacy, decrease access to med. care, half-way, rehab)? @ -No Was there de-escalation of care discussed even if they declined (Discuss DNR or withdrawal of care, Hospice)? DNR status @ -No What co-morbidities impacted this encounter? (DM, HTN, Smoking, COPD, CAD, Cancer, CVA, ARF, Chemo, Hep., AIDS, mental health diagnosis, sleep apnea, morbid obesity)? @ -None Was patient admitted / discharged? Hospital course, mention meds given and route, prescriptions, significant lab abnormalities, going to OR and other pertinent info. @ -Patient is a 33-year-old female with history of migraine and anemia presenting with right upper extremity pain that started 2 days ago. ED showed sinus rhythm with ventricular rate of 64 bpm, no ST elevation or depression. CBC, PT/PTT, D-dimer all came back unremarkable. Patient will be discharged. Advised Tylenol and Motrin as needed for pain. Advised patient to wear brace for carpal tunnel. Undiagnosed new problem with uncertain prognosis? @ -No Drug Therapy requiring intensive monitoring for toxicity (Heparin, Nitro, Insulin, Cardizem)? @ -No Were any procedures done? @ -No Diagnosis/symptom? @ -Carpal tunnel syndrome Acute, or Chronic, or Acute on Chronic? @ -Acute Uncomplicated (without systemic symptoms) or Complicated (systemic symptoms)? @ -Uncomplicated Side effects of treatment? @ -No Exacerbation, Progression, or Severe Exacerbation? @ -No Poses a threat to life or bodily function? How? (Chest pain, [place], [place], pneumonia, PE, COPD, DKA, ARF, appy, cholecystitis, CVA, Diverticulitis, Homicidal, Lorri cidal, threat to staff... and all critical care pts) @ -No (Figueroa Isidro) I personally saw the patient and performed the critical portion of the service. I discussed the patient care with the resident physician. I directed management, care planning and final disposition of the patient. This includes, but not limited to, review of all lab work, radiological studies, EKG's, consultations, vital signs, and nursing notes. This is a pleasant 33-year-old female no significant medical history presenting today for atraumatic right wrist pain. Was seen earlier at urgent care and diag nosed with tenosynovitis. Patient states he took 1 Aleve earlier in the day yesterday. She was discharged from urgent care with a brace. She states pain traveled up towards her elbow this evening. On my assessment wrist is atraumatic, there is no erythema, swelling, deformity or other signs of injury. There is no swelling or edema of the left upper extremity. No venous prominence. She is able to range the extremity through full range of motion without difficulty or deficit. There is mild tenderness with patient of the right lateral wrist. Offered patient Toradol however she states that that is too strong for her and was okay with additional dose of Aleve. She was concerned about a DVT. Patient has no risk factors for DVT and has a Wells score of -2 however out of patient's concern order D-dimer that was ultimately negative. Patient was discharged home with instructions to use NSAIDs, ice and elevate her effect extremity and wear her brace as directed. Patient to follow- up with her doctor regarding today's visit EKG interpreted by me (3pts min.) @EKG obtained as part of ATP protocol, was not ordered @Showed sinus rhythm, rate 64 bpm OH interval 164 ms QT/QTc 430/439 ms, normal axis, no ST elevations or depressions, no ischemic changes no Brugada pattern no delta waves Critical care time of [0] minutes excluding separately billable procedures was spent in conjunction with critical care activities provided by the Resident and Attending simultaneously. (Armida Monae) - Lab Data Lab Results 09/12/24 09/12/24 Range/Units 03:18 03:18 WBC 9.2 (3.8-10.6) k/uL RBC 3.61 L (3.80-5.40) m/uL Hgb 12.0 (11.4-16.0) gm/dL Hct 36.9 (34.0-46.0) % MCV 102.2 H (80.0-100.0) fL MCH 33.2 (25.0-35.0) pg MCHC 32.5 (31.0-37.0) g/dL RDW 12.3 (11.5-15.5) % Plt Count 266 (150-450) k/uL MPV 7.5 Neutrophils % 51 % Lymphocytes % 39 % Monocytes % 6 % Eosinophils % 2 % Basophils % 0 % Neutrophils # 4.7 (1.3-7.7) k/uL Lymphocytes # 3.6 (1.0-4.8) k/uL Monocytes # 0.5 (0-1.0) k/uL Eosinophils # 0.2 (0-0.7) k/uL Basophils # 0.0 (0-0.2) k/uL PT 10.2 (10.0-12.5) sec INR 0.9 (<1.2) APTT 24.8 (22.0-30.0) sec D-Dimer 0.37 (<0.60) mg/L FEU Disposition Is patient prescribed a controlled substance at d/c from ED?: No Time of Disposition: 04:25 <Figueroa Isidro - Last Filed: 09/12/24 04:24> <Armida Monae - Last Filed: 09/12/24 04:51> Clinical Impression: Carpal tunnel syndrome Narrative: Patient will be discharged home. Recommend patient to wear brace for carpal tunnel (Figueroa Isidro) Disposition: HOME SELF-CARE Condition: Stable Additional Instructions: Every disease is a spectrum and a small chance still exists that a serious condition could develop, for this reason, please monitor yourself closely for new, changing or worsening symptoms, new confusion, changes in behavior, severe headache, changes in vision, numbness, weakness, chest pain, fever, inability to tolerate/keep down fluids or your medications, inability to follow up with outpatient providers as instructed and should you experience these symptoms or should you have any further concerns for your wellbeing please return to the ED or call 911 immediately. PLEASE call your primary care physician as soon as possible to arrange / discuss plan for followup appointment. Appointment in the next 1-3 days is strongly encouraged if possible. PLEASE let us know here before you leave if there is anything further we can do to be of any assistance. Take care and feel Better! Referrals: Shaq Majano [Primary Care Provider] - 1-2 days
[2024-09-12 03:51] LABS: INR 0.9 (<1.2); Partial Thromboplastin Time 24.8 sec (22.0-30.0); Prothrombin Time 10.2 sec (10.0-12.5)
[2024-09-12 04:01] LABS: Basophils % (A) 0 %; Eosinophils # (A) 0.2 k/uL (0-0.7); Eosinophils % (A) 2 %; HCT 36.9 % (34.0-46.0); Lymphocytes # (A) 3.6 k/uL (1.0-4.8); Lymphocytes % (A) 39 %; MCH 33.2 pg (25.0-35.0); MCHC 32.5 g/dL (31.0-37.0); MCV 102.2 fL (80.0-100.0); Mean Platelet Volume 7.5; Monocytes # (A) 0.5 k/uL (0-1.0); Monocytes % (A) 6 %; Neutrophils # (A) 4.7 k/uL (1.3-7.7); Neutrophils % (A) 51 %; Platelet Count 266 k/uL (150-450); RBC 3.61 m/uL (3.80-5.40); RDW 12.3 % (11.5-15.5); WBC 9.2 k/uL (3.8-10.6)
[2024-09-12 04:34] VITALS: BP 122/75; PULSE 62
== END 2024-09-12 04:30 | disposition home or self-care (01) ==
LOC: EC 00:37
DX: G56.00 Carpal tunnel syndrome, unspecified upper limb (principal); F17.200 Nicotine dependence, unspecified, uncomplicated; Z88.0 Allergy status to penicillin; Z88.8 Allergy status to other drugs, medicaments and biological substances
CPT/HCPCS: 36415; 85025; 85379; 85610; 85730; 93005; 99283